=== PATIENT | male | born 1990 | race Caucasian/White ===

== ENCOUNTER 2017-03-11 11:22 | Emergency (ER) | payer OTHER ==
[2017-03-11 12:34] VITALS: BP 153/90
[2017-03-11] MEDS ORDERED: Albuterol/Ipratropium NEB.SOL* Albuterol 2.5 MG/Ipratropium 0.5 MG 3 ML INH ONE (12:59)
[2017-03-11] MEDS ORDERED: Albuterol/Ipratropium NEB.SOL* Albuterol 2.5 MG/Ipratropium 0.5 MG 3 ML ONE (13:36)
--- NOTE | 2017-03-11 14:00 | RAD ---
HISTORY: Fever, cough, wheeze COMPARISONS: August 22, 2014 VIEWS: 2: Frontal dual-energy and lateral views of the chest. FINDINGS: CARDIOMEDIASTINAL SILHOUETTE: The cardiomediastinal silhouette is normal. ERNESTO: The ernesto are normal. PLEURA: The costophrenic angles are sharp. No pleural abnormalities are noted. LUNG PARENCHYMA: The lungs are clear. ABDOMEN: The upper abdomen is clear. There is no subphrenic gas. BONES AND SOFT TISSUES: No bone or soft tissue abnormalities are noted. OTHER: None. IMPRESSION: NO ACTIVE CARDIOPULMONARY DISEASE.
--- NOTE | 2017-04-08 13:55 | UC ---
Everett Fang Salem, scribed for Staci Carlos MD on 03/11/17 at 1300 . Respiratory Complaint HPI - HPI Summary HPI Summary: Patient is a 26 y/o male who presents to the with a cough and congestion since 4 days, but worse today. He reports CP when coughing, a mild subjective fever, and pain with swallowing. Pt denies a headache. He states that he does not have an inhaler, but used to when he was younger. He states that he did not receive a flu shot this year. Pt works outside in [employer] Patients medication reviewed this visit. - History of Current Complaint Chief Complaint: UCRespiratory Stated Complaint: SORE THROAT,COUGH Time Seen by Provider: 03/11/17 12:45 Hx Obtained From: Patient Onset/Duration: Gradual Onset, Lasting Days, Still Present Timing: Constant Severity Initially: Moderate Severity Currently: Moderate Character: Cough: Productive Aggravating Factors: Nothing Alleviating Factors: Nothing Associated Signs And Symptoms: Positive: Fever - Subjective. - Allergies/Home Medications Allergies/Adverse Reactions: Allergies Allergy/AdvReac Type Severity Reaction Status Date / Time No Known Allergies Allergy Verified 12/17/15 16:00 Home Medications: Home Medications Benzotropene? 03/11/17 [History] Divalproex Sodium [Depakote] 1,000 mg PO DAILY 03/11/17 [History Confirmed 03/11] Haloperidol TAB* [Haldol TAB*] 10 mg PO DAILY 03/11/17 [History Confirmed ] PMH/Surg Hx/FS Hx/Imm Hx Previously Healthy: Yes Endocrine History Of: Denies: Diabetes, Thyroid Disease Cardiovascular History Of: Denies: Cardiac Disorders, Hypertension, Congestive Heart Failure Respiratory History Of: Denies: COPD, Asthma GI/ History Of: Denies: Ulcer, Renal Disease Psychological History Of: Reports: Schizophrenia - Surgical History Surgical History: None - Family History Known Family History: Positive: Other - schizophrenia - Social History Alcohol Use: None Alcohol Amount: hx etoh abuse Substance Use Type: Marijuana Substance Use Comment - Amount & Last Used: 2 nights ago Smoking Status (MU): Current Every Day Smoker Type: Cigarettes Amount Used/How Often: PPD Length of Time of Smoking/Using Tobacco: 5YRS Have You Smoked in the Last Year: Yes When Did the Patient Quit Smoking/Using Tobacco: 02/28/14 Household Exposure Type: Cigarettes - Immunization History Most Recent Influenza Vaccination: never Most Recent Tetanus Shot: within 10 years Most Recent Pneumonia Vaccination: never Review of Systems Constitutional: Fever - Mild, subjective. Respiratory: Cough, Other - See HPI. All Other Systems Reviewed And Are Negative: Yes Physical Exam Triage Information Reviewed: Yes Appearance: Obese Vital Signs: Initial Vital Signs Temp 99.0 F 03/11/17 12:23 Pulse 94 03/11/17 12:23 Resp 18 03/11/17 12:23 BP 153/90 03/11/17 12:23 Pulse Ox 96 03/11/17 12:23 Blood pressure noted and patient informed to follow up with PCP. Vital Signs Reviewed: Yes Eye Exam: Normal ENT Exam: Normal Respiratory Exam: Normal Respiratory: Positive: Chest non-tender, Lungs clear, Normal breath sounds, No respiratory distress, No accessory muscle use Cardiovascular Exam: Normal Cardiovascular: Positive: RRR, No Murmur, Pulses Normal, Brisk Capillary Refill Abdomen Description: Positive: Nontender, No Organomegaly, Soft Bowel Sounds: Positive: Present Musculoskeletal: Positive: Strength Intact Neurological Exam: Normal - nonfocal, grossly intact Psychological Exam: Normal - conversing easily and appropriately Skin Exam: Normal - no visible or reported rash UC Diagnostic Evaluation - Laboratory O2 Sat by Pulse Oximetry: 96 Diagnostic Studies Comment: Group A Strep Rapid: negative. - Radiology Radiology Interpretation Completed By: Radiologist - CXR IMPRESSION: NO ACTIVE CARDIOPULMONARY DISEASE. Re-Evaluation - Re-Evaluation First Eval Re-Evaluation Time: 14:08 Comment: Informed pt of plan. Respiratory Course/Dx - Course Course Of Treatment: No new problems in CCC. Reviewed ancillaries with pt. Questions answered as posed to the best of my ability. - Differential Dx/Diagnosis Provider Diagnoses: Acute bronchitis. Discharge - Discharge Plan Condition: Stable Disposition: HOME Prescriptions: Albuterol HFA INHALER* [Ventolin HFA Inhaler*] 1 - 2 puff INH Q4H PRN #1 mdi PRN Reason: Wheezing Amoxicillin (*) [Amoxicillin 875 MG (*)] 875 mg PO BID #20 tab Patient Education Materials: Acute Bronchitis (ED), Wheezing (ED) Referrals: [facility] [Outside] Additional Instructions: Please follow up with your primary care provider per routine Recommend recheck (lungs) in 1-2 weeks. Seek medical attention for worsening problems in the meantime. Recommend rest as much as possible, drink plenty of water. Avoid smoking. The documentation as recorded by the Everett rajan Salem accurately reflects the service I personally performed and the decisions made by me, Staci Carlos MD.
== END 2017-03-11 14:24 | disposition home or self-care (01) ==
LOC: UCEAST 11:22
DX: J20.9 Acute bronchitis, unspecified (principal); E66.9 Obesity, unspecified; F20.9 Schizophrenia, unspecified; F12.90 Cannabis use, unspecified, uncomplicated; F17.210 Nicotine dependence, cigarettes, uncomplicated
CPT/HCPCS: 71020; 87651; 99212; A9270-GY; G0463

== ENCOUNTER → 2017-07-26 21:40 | Emergency (ER) | payer MEDICAID ==
[2017-07-26 22:45] LABS: Hematocrit 39 % (42-52); Hemoglobin 13.5 g/dl (14.0-18.0); Mean Corpuscular HGB Conc 35 g/dl (31-36); Mean Corpuscular Hemoglobin 31 pg (27-31); Mean Corpuscular Volume 88 fL (80-94); Mean Platelet Volume 9 um3 (7.4-10.4); Red Blood Count 4.39 10^6/ul (4.0-5.4); Red Cell Distribution Width 13 % (10.5-15); White Blood Count 9.3 10^3/ul (3.5-10.8)
[2017-07-26 22:45] LABS: Urine Bacteria Absent (Absent); Urine Bilirubin Negative (Negative); Urine Glucose Negative (Negative); Urine Nitrite Negative (Negative)
[2017-07-26 23:00] LABS: ALT 16 U/L (7-52); AST 19 U/L (13-39); Albumin 4.2 g/dL (3.2-5.2); Alkaline Phosphatase 40 U/L (34-104); Anion Gap 5 mmol/L (2-11); BUN/Creatinine Ratio 11.1 (8-20); Blood Urea Nitrogen 10 mg/dL (6-24); CO2 Carbon Dioxide 27 mmol/L (22-32); Calcium 9.1 mg/dL (8.6-10.3); Chloride 104 mmol/L (101-111); EGFR African American 131.2 (>60); Globulin 2.7 g/dL (2-4); Glucose 88 mg/dL (70-100); Potassium 3.9 mmol/L (3.5-5.0); Sodium 136 mmol/L (133-145); Total Protein 6.9 g/dL (6.4-8.9)
[2017-07-26 23:11] LABS: Benzodiazepine Urine Screen None Detected (None Detect)
[2017-07-26 23:50] LABS: Acetaminophen < 15 mcg/mL; Alcohol < 10 mg/dL (<10); Salicylate < 2.50 mg/dL (<30)
[2017-07-27 00:01] LABS: TSH (Thyroid Stimulating Horm) 3.57 mcIU/mL (0.34-5.60)
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
[2017-07-27 00:20] VITALS: BP 115/36
--- NOTE | 2017-07-27 03:48 | ED ---
Daksha Fang Rebecca, scribed for Oni Friend on 07/27/17 at 0242 . Progress - Progress Note Progress Note: Pt was signed out from Dr. Sethi, pending disposition, awaiting MHE. - Consult/PCP Time Called: 12:00 Course/Dx - Course Course Of Treatment: Pt was signed out from Dr. Sethi, pending disposition, awaiting MHE. Upon completion of MHE and evaluation with Dr. Mckeon it has been determined that the pt is cleared to be D/C to home with Dx of anxiety. Pt's condition is stable and he understands and agrees with disposition plan to be D/ C. - Diagnoses Provider Diagnoses: Anxiety The documentation as recorded by the Daksha rajan Rebecca accurately reflects the service I personally performed and the decisions made by , Oni Friend.
== END ==
LOC: ED 21:40
DX: F23 Brief psychotic disorder (principal); F41.9 Anxiety disorder, unspecified; F17.210 Nicotine dependence, cigarettes, uncomplicated; F12.10 Cannabis abuse, uncomplicated
CPT/HCPCS: 36415; 80053; 80307; 80320; 80329; 81003; 81015; 84443; 85025; 99283; G0480

== ENCOUNTER 2017-10-18 12:35 | Emergency (ER) | payer OTHER ==
[2017-10-18 13:18] LABS: Benzodiazepine Urine Screen None Detected (None Detect)
[2017-10-18 13:19] LABS: Urine Bacteria Absent (Absent); Urine Bilirubin Negative (Negative); Urine Glucose Negative (Negative); Urine Nitrite Negative (Negative)
[2017-10-18 13:42] LABS: Hematocrit 41 % (42-52); Hemoglobin 14.2 g/dl (14.0-18.0); Mean Corpuscular HGB Conc 34 g/dl (31-36); Mean Corpuscular Hemoglobin 30 pg (27-31); Mean Corpuscular Volume 88 fL (80-94); Mean Platelet Volume 8 um3 (7.4-10.4); Red Blood Count 4.71 10^6/ul (4.0-5.4); Red Cell Distribution Width 13 % (10.5-15); White Blood Count 12.8 10^3/ul (3.5-10.8)
[2017-10-18 13:55] LABS: ALT 43 U/L (7-52); Albumin 4.5 g/dL (3.2-5.2); Alkaline Phosphatase 56 U/L (34-104); BUN/Creatinine Ratio 12.1 (8-20); Blood Urea Nitrogen 12 mg/dL (6-24); CO2 Carbon Dioxide 26 mmol/L (22-32); Calcium 9.7 mg/dL (8.6-10.3); Chloride 104 mmol/L (101-111); EGFR African American 117.5 (>60); EGFR Non-African American 91.4 (>60); Globulin 2.9 g/dL (2-4); Glucose 94 mg/dL (70-100); Sodium 136 mmol/L (133-145); Total Protein 7.4 g/dL (6.4-8.9)
[2017-10-18 14:08] LABS: Acetaminophen < 15 mcg/mL; Alcohol < 10 mg/dL (<10); Lithium 0.55 mmol/L (0.6-1.2); Salicylate < 2.50 mg/dL (<30)
[2017-10-18 14:23] LABS: TSH (Thyroid Stimulating Horm) 4.24 mcIU/mL (0.34-5.60)
[2017-10-18 14:32] LABS: Anion Gap 6 mmol/L (2-11); Potassium 4.3 mmol/L (3.5-5.0)
[2017-10-18 14:33] LABS: AST 32 U/L (13-39)
[2017-10-18] MEDS ORDERED: OLANzapine TAB* 5 MG ONE (16:45)
[2017-10-18 16:50] VITALS: BP 125/96
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
[2017-10-18] MEDS ORDERED: OLANzapine TAB* 10 MG PO SCH (21:00)
== END 2017-10-18 16:50 | disposition home or self-care (01) ==
LOC: ED 12:35
DX: R44.3 Hallucinations, unspecified (principal); F17.210 Nicotine dependence, cigarettes, uncomplicated; Z00.8 Encounter for other general examination
CPT/HCPCS: 36415; 80053; 80178; 80307; 80320; 80329; 81003; 81015; 84443; 85025; 99282; A9270-GY; G0480

== ENCOUNTER 2017-11-28 20:13 | Emergency (ER) | payer MEDICAID, OTHER ==
[2017-11-28 21:29] LABS: ABS Basophils 0 10^3/ul (0-0.2); ABS Eosinophils 0.4 10^3/ul (0-0.6); ABS Monocytes 0.6 10^3/ul (0-0.8); ABS Nucleated RBC 0 10^3/ul; Eosinophil % 3.8 % (0-6); Hematocrit 42 % (42-52); Hemoglobin 14.3 g/dl (14.0-18.0); Mean Corpuscular HGB Conc 35 g/dl (31-36); Mean Corpuscular Hemoglobin 30 pg (27-31); Mean Corpuscular Volume 88 fL (80-94); Mean Platelet Volume 9 um3 (7.4-10.4); Nucleated Red Blood Cells % 0.1; Platelet Count 213 10^3/ul (150-450); Red Blood Count 4.72 10^6/ul (4.0-5.4); Red Cell Distribution Width 13 % (10.5-15); White Blood Count 9.9 10^3/ul (3.5-10.8)
[2017-11-28 21:31] LABS: Urine Appearance Clear; Urine Blood 2+ (Negative); Urine Color Straw; Urine Ketones Negative (Negative); Urine Protein Negative (Negative); Urine Specific Gravity 1.005 (1.010-1.030); Urine Urobilinogen Negative (Negative)
[2017-11-28 21:50] LABS: EGFR Non-African American 78.4 (>60)
[2017-11-28] MEDS ORDERED: Ibuprofen TAB* 600 MG PO ONE (22:15)
[2017-11-29 00:30] VITALS: BP 143/82
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
== END 2017-11-29 00:30 | disposition home or self-care (01) ==
LOC: ED 20:13
DX: F29 Unspecified psychosis not due to a substance or known physiological condition (principal); R44.3 Hallucinations, unspecified; F17.210 Nicotine dependence, cigarettes, uncomplicated
CPT/HCPCS: 36415; 80053; 80178; 80307; 80320; 80329; 81003; 81015; 84443; 85025; 99284; A9270-GY; G0480

== ENCOUNTER 2017-12-04 11:49 | Emergency (ER) | payer MEDICAID, OTHER | END 2017-12-04 13:40 | disposition left against medical advice (07) | LOC: UCEAST 11:49 | DX: J06.9 Acute upper respiratory infection, unspecified (principal); Z53.21 Procedure and treatment not carried out due to patient leaving prior to being seen by health care provider ==

== ENCOUNTER 2018-01-05 05:22 | Emergency (ER) | payer OTHER ==
[2018-01-05 06:07] LABS: ABS Basophils 0.1 10^3/ul (0-0.2); ABS Eosinophils 0.4 10^3/ul (0-0.6); ABS Lymphocytes 3.1 10^3/ul (1.0-4.8); ABS Monocytes 0.7 10^3/ul (0-0.8); ABS Neutrophils 5.4 10^3/ul (1.5-7.7); ABS Nucleated RBC 0 10^3/ul; Eosinophil % 4.2 % (0-6); Hematocrit 39 % (42-52); Hemoglobin 13.4 g/dl (14.0-18.0); Lymphocyte % 32.2 % (25-47); Mean Corpuscular HGB Conc 34 g/dl (31-36); Mean Corpuscular Hemoglobin 30 pg (27-31); Mean Corpuscular Volume 87 fL (80-94); Mean Platelet Volume 9 um3 (7.4-10.4); Nucleated Red Blood Cells % 0; Platelet Count 205 10^3/ul (150-450); Red Blood Count 4.49 10^6/ul (4.0-5.4); Red Cell Distribution Width 13 % (10.5-15); White Blood Count 9.8 10^3/ul (3.5-10.8)
[2018-01-05 06:14] LABS: Urine Appearance Clear; Urine Blood 2+ (Negative); Urine Color Yellow; Urine Ketones Negative (Negative); Urine Protein Negative (Negative); Urine Specific Gravity 1.008 (1.010-1.030); Urine Urobilinogen Negative (Negative)
[2018-01-05 06:21] LABS: EGFR Non-African American 76.9 (>60)
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
[2018-01-05 17:24] VITALS: BP 124/77
--- NOTE | 2018-01-05 18:05 | ED ---
Andry Fang Angela, scribed for Austin Mixon MD on 01/05/18 at 0730 . Progress - Progress Note Progress Note: This pt was signed out by Dr. Elizabeth, pending disposition, awaiting MHE. On re-evaluation, pt is resting comfortably with no distress. He reports he is feeling better. Pt is awaiting MHE. Pt was evaluated by the mental health film vault supervisor and Dr. Kern. Dr. Kern recommends to discharge the pt home with outpatient follow up from Dr. Jose at [facility]. Pt will be discharged to home, in stable condition, with a diagnosis of bipolar disorder. Condition: Stable Disposition: Home Re-Evaluation - Re-Evaluation First Eval Re-Evaluation Time: 07:23 Change: Improved Comment: Pt is resting comfortably with no distress. He reports he is feeling better. Pt is awaiting MHE. Course/Dx - Diagnoses Provider Diagnoses: Bipolar disorder The documentation as recorded by the Andry rajan Angela accurately reflects the service I personally performed and the decisions made by , Austin Mixon MD.
== END 2018-01-05 17:18 ==
LOC: ED 05:22
DX: F31.9 Bipolar disorder, unspecified (principal); F17.210 Nicotine dependence, cigarettes, uncomplicated
CPT/HCPCS: 36415; 80053; 80178; 80307; 80320; 80329; 81003; 81015; 84443; 85025; 99284; G0480

== ENCOUNTER 2018-01-18 16:12 | Emergency (ER) | payer MEDICAID, OTHER ==
[2018-01-18 16:20] VITALS: BP 134/89
[2018-01-18] MEDS ORDERED: OLANzapine TAB* 10 MG PO ONE ×2 (16:35→16:36)
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
== END 2018-01-18 16:45 | disposition home or self-care (01) ==
LOC: ED 16:12
DX: F29 Unspecified psychosis not due to a substance or known physiological condition (principal); F17.210 Nicotine dependence, cigarettes, uncomplicated
CPT/HCPCS: 99282; A9270-GY

== ENCOUNTER 2018-08-14 22:39 | Observation (INO) | payer MEDICAID ==
[2018-08-14] MEDS ORDERED: NS 0.9% 1000 ML* 1,000 ML IV ONE (23:54)
[2018-08-14] MEDS ORDERED: Morphine INJ* 4 MG/ML 1 ML SYRINGE (NEW SYRINGE VERSION) IV ONE (23:54)
[2018-08-14] MEDS ORDERED: Metoclopramide IV* 5 MG/ML 2 ML VIAL IV SLOW PU ONE (23:55)
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
[2018-08-15] MEDS ORDERED: Ketorolac INJ* 30 MG/ML 1 ML VIAL IV PUSH ONE (00:04)
[2018-08-15] MEDS ORDERED: Pantoprazole IV* 40 MG IV ONE (00:05)
[2018-08-15 00:24] LABS: ABS Basophils 0.1 10^3/ul (0-0.2); ABS Eosinophils 0.3 10^3/ul (0-0.6); ABS Lymphocytes 1.9 10^3/ul (1.0-4.8); ABS Monocytes 0.9 10^3/ul (0-0.8); ABS Neutrophils 16.2 10^3/ul (1.5-7.7); ABS Nucleated RBC 0 10^3/ul; Eosinophil % 1.3 % (0-6); Hematocrit 44 % (42-52); Hemoglobin 15.3 g/dl (14.0-18.0); Lymphocyte % 9.9 % (25-47); Mean Corpuscular HGB Conc 35 g/dl (31-36); Mean Corpuscular Hemoglobin 30 pg (27-31); Mean Corpuscular Volume 86 fL (80-94); Mean Platelet Volume 8.6 um3 (7.4-10.4); Nucleated Red Blood Cells % 0.1; Platelet Count 284 10^3/ul (150-450); Red Blood Count 5.13 10^6/ul (4.00-5.40); Red Cell Distribution Width 13 % (10.5-15); White Blood Count 19.3 10^3/ul (3.5-10.8)
[2018-08-15 00:30] LABS: EGFR Non-African American 62.9 (>60)
[2018-08-15 00:43] LABS: Urine Appearance Cloudy; Urine Blood 3+ (Negative); Urine Color Yellow; Urine Ketones Negative (Negative); Urine Protein 1+(30 mg/dL) (Negative); Urine Red Blood Cell 3+(>10/hpf) (Absent); Urine Specific Gravity 1.017 (1.010-1.030); Urine Urobilinogen Negative (Negative); Urine White Blood Cell Trace(0-5/hpf) (Absent)
--- NOTE | 2018-08-15 00:48 | RAD ---
EXAM: US Abdomen Limited, Right Upper Quadrant EXAM DATE/TIME: 08/15/2018 12:12 AM CLINICAL HISTORY: 28 years old, male; Pain; Abdominal pain; Generalized; Additional info: Abd pain TECHNIQUE: Real-time ultrasound of the abdomen with image documentation. Examination was focused on the right upper quadrant. COMPARISON: No relevant prior studies available. FINDINGS: Liver: The liver is enlarged measuring 22 cm craniocaudad and diffusely echogenic consistent with fatty infiltration. Gallbladder: Normal. No gallstones. There is no gallbladder wall thickening. Common bile duct: The common bile duct measures 0.5 cm. Pancreas: The pancreatic body and tail were obscured by bowel gas. Right kidney: The right kidney measures 12.8 x 5.9 x 4.4 cm. IMPRESSION: 1. No acute findings. No shadowing gallstones. 2. Hepatic steatosis. 3. Pancreas incompletely visualized due to bowel gas. To contact [facility] with a general question: [facility] - [phone] For direct physician to physician contact: Physician Hotline - [phone] [facility] ([facility] Facility ID #[id number])
[2018-08-15] MEDS ORDERED: Iohexol 300* (CONTRAST) 10 ML SDV IV ONE (02:14)
--- NOTE | 2018-08-15 03:42 | RAD ---
EXAM: CT Abdomen and Pelvis With Intravenous Contrast EXAM DATE/TIME: 08/15/2018 2:15 AM CLINICAL HISTORY: 28 years old, male; Pain; Abdominal pain; Generalized; Additional info: Abd pain TECHNIQUE: Axial computed tomography images of the abdomen and pelvis with intravenous contrast. All CT scans at this facility use at least one of these dose optimization techniques: automated exposure control; mA and/or kV adjustment per patient size (includes targeted exams where dose is matched to clinical indication); or iterative reconstruction. Coronal and sagittal reformatted images were created and reviewed. CONTRAST: 145 ml of OMNI 300 administered intravenously. COMPARISON: GB US GALL BLADDER 08/15/2018 12:03 AM FINDINGS: Lower thorax: Minimal bibasilar fibro-atelectatic change. ABDOMEN: Liver: There is fatty infiltration of the liver. Liver attenuation is 88 Hounsfield units and the spleen is 142. Gallbladder and bile ducts: The gallbladder is contracted with no stones. Pancreas: Normal. No ductal dilation. Spleen: Normal. No splenomegaly. Adrenals: Normal. No mass. Kidneys and ureters: Normal. No hydronephrosis. Stomach and bowel: Mild fluid distention of proximal small bowel with air-fluid levels and collapsed distal small bowel consistent with a small bowel obstruction. There is a tapering transition in the lower abdomen and pelvis centered at the left of midline. Appendix: A normal appendix is seen. PELVIS: Bladder: Unremarkable as visualized. Reproductive: Unremarkable as visualized. ABDOMEN and PELVIS: Intraperitoneal space: Mild free fluid in the pelvis with a Hounsfield measurement of 23. Bones/joints: No acute fracture. No dislocation. Soft tissues: Unremarkable. Vasculature: Normal. No abdominal aortic aneurysm. Lymph nodes: Normal. No enlarged lymph nodes. IMPRESSION: 1. Fatty infiltration of the liver. 2. Evidence of small bowel obstruction with a tapering transition in the lower abdomen or pelvis to the left of midline. Although this may be mechanical, enteritis with adynamic segment is not excluded. 3. Mild free fluid in the pelvis which is nonspecific but is likely reactive. To contact [facility] with a general question: [facility] - [phone] For direct physician to physician contact: Physician Hotline - [phone] [facility] ([facility] Facility ID #[id number])
--- NOTE | 2018-08-15 04:58 | ED ---
Progress - Progress Note Progress Note: At 4:30 patient wanted to leave [facility] because he has work. He is still being admitted to Dr. Beth. Course/Dx - Course Course Of Treatment: Pt is a 28 y/o male who presents to the ED c/o abdominal pain since yesterday. He states the pain is worse after eating. Pt also c/o N/ V. He denies any hx of abdominal surgeries. A physical exam revealed RUQ and epigastric tenderness. A CT A/P revealed Fatty infiltration of the liver. Evidence of small bowel obstruction with a tapering transition in the lower abdomen or pelvis to the left of midline. Although this may be mechanical, enteritis with adynamic segment is not excluded. Mild free fluid in the pelvis which is nonspecific but is likely reactive. A gallbladder US revealed No acute findings. No shadowing gallstones. Hepatic steatosis. Pancreas incompletely visualized due to bowel gas. Final dx is small bowel obstruction. Pt is admitted to Dr. Beth. - Diagnoses Provider Diagnoses: Obstructive ileus of small intestine due to impaction, Abdominal pain - Provider Notifications Discussed Care Of Patient With: Sophy Beth Time Discussed With Above Provider: 04:50 Instructed by Provider To: Admit As Inpatient - Spoke to Dr. Beth about the care of the patient. Discharge - Sign-Out/Discharge Documenting (check all that apply): Patient Departure - Admit - Discharge Plan Condition: Stable Disposition: ADMITTED TO [facility] Referrals: Carlos CALLEJAS,Patrick Mean [Primary Care Provider] - - Attestation Statements Document Initiated by Scribe: Yes Documenting Scribe: Wendy Davis Provider For Whom Scribe is Documenting (Include Credential): Odette Brennan Attestation: Wendy Fang, deonte for Amy Elizabeth on 08/15/18 at 0456.
[2018-08-15] MEDS ORDERED: Ondansetron INJ* 2 MG/ML VIAL IV PRN (05:00)
[2018-08-15] MEDS ORDERED: Metoclopramide IV* 5 MG/ML 2 ML VIAL IV PRN (05:07)
[2018-08-15] MEDS ORDERED: ZOSYN 3.375 GM x ONE DOSE over 30 miuntes IVPB STA ×2 (05:53)
[2018-08-15] MEDS ORDERED: Pantoprazole IV* 40 MG IV SCH (06:00)
[2018-08-15] MEDS ORDERED: Ketorolac INJ* 30 MG/ML 1 ML VIAL IV PUSH PRN (06:16)
[2018-08-15 06:18] LABS: ABS Basophils 0 10^3/ul (0-0.2); ABS Eosinophils 0.3 10^3/ul (0-0.6); ABS Lymphocytes 2.3 10^3/ul (1.0-4.8); ABS Monocytes 0.6 10^3/ul (0-0.8); ABS Neutrophils 11.4 10^3/ul (1.5-7.7); ABS Nucleated RBC 0 10^3/ul; Eosinophil % 1.8 % (0-6); Hematocrit 42 % (42-52); Hemoglobin 14.5 g/dl (14.0-18.0); Mean Corpuscular HGB Conc 34 g/dl (31-36); Mean Corpuscular Hemoglobin 30 pg (27-31); Mean Corpuscular Volume 87 fL (80-94); Mean Platelet Volume 8.1 um3 (7.4-10.4); Nucleated Red Blood Cells % 0.1; Platelet Count 256 10^3/ul (150-450); Red Cell Distribution Width 14 % (10.5-15); White Blood Count 14.6 10^3/ul (3.5-10.8)
[2018-08-15 06:36] LABS: EGFR Non-African American 74.8 (>60)
[2018-08-15 06:53] LABS: Lithium 0.35 mmol/L (0.6-1.2)
[2018-08-15] MEDS: Enoxaparin(*) 40 MG/0.4 ML SYR SUBCUT SCH (07:49)
--- NOTE | 2018-08-15 09:01 | ADMNOTE ---
Subjective Date of Service: 08/15/18 Interval History: this is a admission h/p hpi this is a 28 yr old h male with hx of ivda but has been clean for 18 months presented to er with sudden onset of abd pain for two days threw up after he ate a toccaco. initial wbc of 19 ct of abd/pelvis showed possible complete sbo. 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 Past Medical History: Findings - phx schezoaffective disorder bipolar hx of polysustance dep cig smoker pxx Review of Systems - Measurements Intake and Output: Intake and Output Last 24 Hours 08/13/18 08/14/18 08/15/18 08/16/18 06:59 06:59 06:59 06:59 Intake Total 1000 Balance 1000 Weight 240 lb Intake: IV Fluids 1000 - Review of Systems General Comments: please refer to hpi for details 10/14 ros d/w pt Objective Active Medications: Enoxaparin Sodium (Lovenox(*)) 40 mg SUBCUT Q24H JONATHAN Last Admin: 08/15/18 07:49 Dose: 40 mg Piperacillin Sod/Tazobactam (Sod 3.375 gm/ Sodium Chloride) 100 mls @ 25 mls/ hr IVPB Q8H JONATHAN Ketorolac Tromethamine (Toradol Inj*) 30 mg IV PUSH Q6H PRN PRN Reason: PAIN Last Admin: 08/15/18 07:49 Dose: 30 mg Metoclopramide HCl (Reglan Iv*) 10 mg IV Q6H PRN PRN Reason: NAUSEA/VOMITING Ondansetron HCl (Zofran Inj*) 4 mg IV Q6H PRN PRN Reason: NAUSEA Pantoprazole Sodium (Protonix Iv*) 40 mg IV Q24H JONATHAN Vital Signs - 8 hr 08/15/18 08/15/18 08/15/18 00:52 01:00 01:27 Temperature Pulse Rate 97 85 Respiratory Rate Blood Pressure 161/96 118/87 (mmHg) O2 Sat by Pulse 96 96 Oximetry 08/15/18 08/15/18 08/15/18 01:56 02:21 02:26 Temperature Pulse Rate 88 89 Respiratory Rate Blood Pressure 114/62 129/80 (mmHg) O2 Sat by Pulse 96 95 Oximetry 08/15/18 08/15/18 08/15/18 02:56 03:00 03:26 Temperature Pulse Rate 91 91 89 Respiratory Rate Blood Pressure 111/71 111/79 (mmHg) O2 Sat by Pulse 95 95 94 Oximetry 08/15/18 08/15/18 08/15/18 03:56 04:00 04:26 Temperature Pulse Rate 91 87 89 Respiratory Rate Blood Pressure 121/77 112/66 (mmHg) O2 Sat by Pulse 95 95 96 Oximetry 08/15/18 08/15/18 08/15/18 04:57 05:31 06:11 Temperature 97.8 F Pulse Rate 86 87 85 Respiratory 16 Rate Blood Pressure 149/92 146/72 (mmHg) O2 Sat by Pulse 95 96 98 Oximetry 08/15/18 08/15/18 08/15/18 06:15 06:16 06:17 Temperature 98.2 F Pulse Rate 88 91 88 Respiratory 16 Rate Blood Pressure 126/85 126/85 (mmHg) O2 Sat by Pulse 95 96 95 Oximetry 08/15/18 08/15/18 06:26 06:49 Temperature 98.2 F Pulse Rate 87 88 Respiratory 16 Rate Blood Pressure 138/55 126/85 (mmHg) O2 Sat by Pulse 96 95 Oximetry Oxygen Devices in Use Now: None Eyes: No Scleral Icterus, PERRLA Ears/Nose/Mouth/Throat: NL Teeth, Lips, Gums, Clear Oropharnyx, Mucous Membranes Moist Neck: NL Appearance and Movements; NL JVP, Trachea Midline, No Thyroid Enlargement, Masses Respiratory: Symmetrical Chest Expansion and Respiratory Effort, Clear to Auscultation Cardiovascular: NL Sounds; No Murmurs; No JVD, RRR Abdominal: NL Sounds; No Tenderness; No Distention Extremities: No Edema Skin: No Rash or Ulcers Neurological: Alert and Oriented x 3, NL Sensation, NL Gait, NL Muscle Strength and Tone Result Diagrams: 08/15/18 06:03 08/15/18 06:03 Assess/Plan/Problems-Billing Assessment: 28 yr old wm with hx of polysustance hx has been clean for 18 m presented to er with constant abd pain for two days threw up after eating a toccaco ct scan of abd suggested possible sbo initial wbc is 19 - Patient Problems (1) SIRS (systemic inflammatory response syndrome) Current Visit: Yes Status: Acute Code(s): R65.10 - SIRS OF NON-INFECTIOUS ORIGIN W/O ACUTE ORGAN DYSFUNCTION SNOMED Code(s): 662786336 Comment: - prob due to sbo - strict npo - surg consult placed in and ngt placement as per gi - blood cx followed by zosyn - toradol prn for pain as per pt request (2) SBO (small bowel obstruction) Current Visit: Yes Status: Acute Code(s): K56.609 - UNSP INTESTNL OBST, UNSP TO PARTIAL VERSUS COMPLETE OBST SNOMED Code(s): 329468911 Comment: surgery eval called in (3) Schizo affective schizophrenia Current Visit: Yes Status: Acute Code(s): F25.0 - SCHIZOAFFECTIVE DISORDER, BIPOLAR TYPE SNOMED Code(s): 957994485 Comment: npo for now did inform surgery that his needs his psy if possible (4) Bipolar 1 disorder Current Visit: Yes Status: Acute Code(s): F31.9 - BIPOLAR DISORDER, UNSPECIFIED SNOMED Code(s): 423863817 Comment: on lithium level came back low (5) Cigarette smoker Current Visit: Yes Status: Acute Code(s): F17.210 - NICOTINE DEPENDENCE, CIGARETTES, UNCOMPLICATED SNOMED Code(s): 66777314 Comment: nicotine patch
[2018-08-15] MEDS ORDERED: OLANzapine TAB* 10 MG PO SCH (10:00)
[2018-08-15] MEDS ORDERED: Lurasidone(*) 80 MG TAB PO SCH (10:00)
[2018-08-15] MEDS ORDERED: Piperacillin/Tazobac ADVAN(*) 3.375 GM in NS 0.9% 100 ML* 100 ML IVPB SCH (10:30)
[2018-08-15] MEDS: D5W 1/2 NS KCl 20 Meq 1000 ML* 1,000 ML IV SCH ×2 (11:06→20:58)
--- NOTE | 2018-08-15 12:27 | CONS ---
CC: [facility]; Dr. Mcwilliams with the [facility] office here CONSULTATION REPORT: DATE OF CONSULT: 08/15/18 REFERRING PROVIDER: Dr. Sophy Beth, hospitalist. REASON FOR CONSULT: Small bowel obstruction with nausea and vomiting. HISTORY OF PRESENT ILLNESS: Jovi Joy is a 28-year-old gentleman with a history of schizoaffec tive disease and also remote history of intravenous drug and alcohol abuse, but who has been clean fo r 18 months, who day developed some abdominal distention with generalized abdominal pain associa timothy with some nausea and vomiting. He gives a history of reflux disease where he has some dry heaves and retching and pain up into the chest, but this was different. His last bowel movement was several days ago, he passed small amount of flatus. He has had no fevers , shakes, or chills. He had only 1 episode of vomiting with any substantial amount of fluid and has not had any overnight since he has been in the emergency room. When seen in the emergency room, he was noted to be afebrile with slight elevation in the heart rate to 105. He had some generalized abdominal distention and tenderness. His white count initially was noted to be 19,000 and subsequently has come down to 14,000 on recheck. He had a lactic acid of 2.1 and this has not been repeated. Otherwise, his electrolytes were unremarkable. He did have carbon d ioxide of 21, but normal BUN and creatinine after hydration. Lipase was normal. He underwent a CT scan of his abdomen and pelvis. I did review these images. These do show some mode rately distended proximal small bowel with some distally collapsed small bowel. It is difficult to d etermine if there is a transition zone. There is some air throughout the colon. The stomach was not particularly distended. Otherwise, gallbladder appeared to be normal. There was no evidence of absc ess or inflammatory process. There was some free fluid in the pelvis. He has been admitted to the hospitalist service with surgical consultation. PAST MEDICAL HISTORY: 1. Intravenous drug abuse. 2. Schizoaffective disorder. PAST SURGICAL HISTORY: Past abdominal surgical history is none. SOCIAL HISTORY: He is a smoker on a daily basis. He does not use alcohol or illicit drugs. 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 REVIEW OF SYSTEMS: Cerebrovascular: No dizziness or visual disturbance. Cardiovascular: No chest p ain or shortness of breath. Pulmonary: No wheezing or hemoptysis. GI: As per above. He recently was started on proton pump inhibitor for his reflux symptoms. : No urgency or hematuria. PHYSICAL EXAM: Temperature 98.2, pulse 88, blood pressure 126/85. In general, he is a well-develope d, well-nourished, slightly overweight male, who appeared to be in apparent distress. He is awake, a lert, conversant. Lungs are clear to auscultation with normal respiratory effort. Heart was regular rate and rhythm without murmurs, rubs, or gallop. His abdomen is soft, only slightly distended. The re are no prior surgical incisions. There are no umbilical or inguinal hernias. I appreciate no femo ral hernias. He has tenderness throughout. The bowel sounds are somewhat hyperactive and rushing, b ut are not high pitched or tinkling. He has no evidence of mass. There is no guarding or peritoneal irritation. IMPRESSION AND PLAN: Nausea with vomiting, abdominal distention. The CT scan showed findings worris ome for possible small bowel obstruction in the patient who has not had prior abdominal surgery. At this point, he is feeling much better, although did have leukocytosis, this seems to be improving wit h hydration and his lactic acid was mildly elevated. At this point, I do not believe that there is urgent indication for operative intervention and recomm end observation. It is certainly a little more concerning as there are no prior surgical procedures on his abdomen and we will keep this in mind in management over the next several days, but hopefully, this will resolve without operative management. I did discuss with him possibility that if he does not improve over the next 48 to 72 hours or there is worsening in his condition or x-rays that this may require laparoscopy and/or laparotomy. At this point, since he is not throwing up and the stomach is not distend on the CT scan, he is feeli ng better, I would hold off on the NG tube and place this if he does develop nausea and subsequent vo miting. Thank you for the consultation. [id number]/[facility] #: [id number]
[2018-08-15] MEDS ORDERED: Nicotine Inhaler* 10 MG AMP INH PRN (13:49)
[2018-08-15] MEDS: Mouth Piece, Nicotine* 1 EACH CARTRIDGE INH PRN (14:05)
[2018-08-15] MEDS ORDERED: CMC:Lithium Carbonate ER (NF) 300 MG TAB.ER PO SCH (18:00)
[2018-08-15] MEDS ORDERED: CloZAPine TAB* 100 MG TAB PO SCH (21:00)
[2018-08-15] MEDS: Perphenazine TAB* 2 MG PO SCH (21:10)
[2018-08-16] MEDS: Enoxaparin(*) 40 MG/0.4 ML SYR SUBCUT SCH (05:12)
[2018-08-16] MEDS: D5W 1/2 NS KCl 20 Meq 1000 ML* 1,000 ML IV SCH (06:09)
[2018-08-16] MEDS ORDERED: Pantoprazole IV* 40 MG IV SCH (08:00)
[2018-08-16] MEDS ORDERED: Nicotine PATCH 21 MG/24 HR* PATCH TRANSDERM SCH (08:00)
[2018-08-16] MEDS: Mouth Piece, Nicotine* 1 EACH CARTRIDGE INH PRN (09:35)
--- NOTE | 2018-08-16 09:35 | PN ---
Progress Note - Progress Note Date of Service: 08/16/18 SOAP: Subjective: Feels better--passing flatus No N/V and has appetite No abdominal pain Would like to eat Objective: Temp Pulse Resp BP Pulse Ox 97.4 F 73 16 136/68 95 08/16/18 03:24 08/16/18 03:24 08/16/18 03:24 08/16/18 03:24 08/16/18 03:24 Intake & Output 08/14/18 08/15/18 08/16/18 08/17/18 06:59 06:59 06:59 06:59 Intake Total 2025 0 Output Total 0 Balance 2025 0 Weight 239 lb 1.6 oz Intake: IV Fluids 2025 D5W 1/2 NS 20 meq KCL 1026 Oral 0 Output: Urine 0 Other: # Bowel Movements 0 # Voids 1 PEX: Comfortable Abd is soft and non-distended. Bowel sounds are present, normoactive. No tenderness AXR 08/16--air in colon, no significant small bowel distension Assessment: Abd pain-possible SBO--resolving, clinically improved Plan: Clear liquids and advance as tolerated If does OK could be d/c'd later today.
--- NOTE | 2018-08-16 09:37 | RAD ---
Indication: Follow-up small bowel obstruction. Flat and upright views of the abdomen demonstrates no free air. No dilated loops of bowel are noted. The colon is filled with stool. Previously identified dilated loops of small bowel are less prominent on the current study. Psoas margins are intact. No organomegaly is noted. IMPRESSION: Air is now noted in the sigmoid colon. Small bowel dilatation appears to be decreased relative to the CT dated August 15, 2018.
[2018-08-16] MEDS: Perphenazine TAB* 2 MG PO SCH (09:39)
[2018-08-16 13:11] VITALS: BP 132/70
[2018-08-16] MEDS ORDERED: OLANzapine TAB* 10 MG PO SCH (18:00)
--- NOTE | 2018-08-16 23:19 | DS ---
CC: Dr. Patrick Gonzalez DISCHARGE SUMMARY: DATE OF ADMISSION: DATE OF DISCHARGE: 08/16/18 HOSPITAL COURSE: This 28-year-old man presented with sudden-onset abdominal for 2 days, emesis. Here in the emergency room, he had a CT of the abdomen and pelvis. This showed mild fluid distention of proximal small bowel with air- fluid levels and collapsed distal small bowel consistent with a small bowel obstruction. There was a tapering transition in the lower abdomen and pelvis centered at the left midline. A normal appendix was seen. The impression at the end of the report states that although there was evidence of small bowel obstruction with the tapering transition in the lower abdomen or pelvis to the left of midline; this may be mechanical, but enteritis with adynamic segment was not excluded. The patient had surgical consultation. He was treated conservatively. He had repeat abdominal x-rays on the day of discharge. These showed air had moved to the sigmoid colon, small bowel distention had decreased compared to the CT scan. Dr. Espinoza and I both agreed that given that he has no history of prior abdominal surgery, the clinical course and x-ray findings are most compatible with gastroenteritis. The patient was given clear liquids which he tolerated quite well. His appetite was good. He had no abdominal tenderness or distention. Bowel sounds were normal. He was given all important medications by mouth with sips of water and will resume his regular medical regimen at home. FINAL DIAGNOSES: 1. Gastroenteritis. 2. Psychiatric disorder. 3. Tobacco use disorder. DISCHARGE MEDICATIONS: 1. Olanzapine 10 mg daily. 2. Omeprazole 40 mg daily. 3. Dix carbonate 1200 mg every evening in the extended release form. 4. Clozapine 400 mg daily. 5. Perphenazine 24 mg b.i.d. DISCHARGE DISPOSITION: home DISCHARGE CONDITION: good [id number]/[facility] #: [id number] MTDD
[2018-08-18 14:51] LABS: Creatinine, Urine 207.5 mg/dL; Fentanyl, Ur Not Detected ng/mL (Cutoff: 2); Hydrocodone, Ur Not Detected ng/mL (Cutoff: 25); Hydromorphone, Ur Not Detected ng/mL (Cutoff: 25); Morphine, Ur Not Detected ng/mL (Cutoff: 25); Norfentanyl, Ur Not Detected ng/mL (Cutoff: 2); Oxycodone, Ur Not Detected ng/mL (Cutoff: 25); Tramadol, Ur Not Detected ng/mL (Cutoff: 25)
== END 2018-08-16 14:14 | disposition home or self-care (01) ==
LOC: ED 22:39 → MEDTELE 08-15 04:58 → INTOOBSV 08-15 04:58 → MEDTELE 08-15 06:54
PROVIDERS: ADMIT Internal Medicine; ATTEND Internal Medicine
DX: K21.9 Gastro-esophageal reflux disease without esophagitis (principal); K56.609 Unspecified intestinal obstruction, unspecified as to partial versus complete obstruction; F99 Mental disorder, not otherwise specified; F17.210 Nicotine dependence, cigarettes, uncomplicated; R11.2 Nausea with vomiting, unspecified; R10.9 Unspecified abdominal pain
CPT/HCPCS: 36415; 74019; 74177; 76705; 80053; 80178; 80307; 80364; 81003; 81015; 82150; 83605; 83690; 83735; 85025; 86140; 87040; 87086; 96374; 96375; 96376; 99285; 99406; A9270-GY; G0378; G0480; J1650; J1885; J2405; J2543; J2765; Q9967

== ENCOUNTER 2018-08-18 22:04 | Emergency (ER) | payer MEDICAID ==
[2018-08-18] MEDS ORDERED: Ketorolac INJ* 30 MG/ML 1 ML VIAL IV PUSH ONE (22:56)
[2018-08-18] MEDS ORDERED: NS 0.9% 1000 ML* 1,000 ML IV ONE (22:56)
[2018-08-18] MEDS ORDERED: Metoclopramide IV* 5 MG/ML 2 ML VIAL IV SLOW PU ONE (22:57)
[2018-08-18 23:40] LABS: ABS Basophils 0 10^3/ul (0-0.2); ABS Eosinophils 0.2 10^3/ul (0-0.6); ABS Lymphocytes 1.6 10^3/ul (1.0-4.8); ABS Monocytes 0.8 10^3/ul (0-0.8); ABS Neutrophils 13.3 10^3/ul (1.5-7.7); ABS Nucleated RBC 0 10^3/ul; Eosinophil % 1.1 % (0-6); Hematocrit 46 % (42-52); Hemoglobin 15.6 g/dl (14.0-18.0); Lymphocyte % 10.1 % (25-47); Mean Corpuscular HGB Conc 34 g/dl (31-36); Mean Corpuscular Hemoglobin 30 pg (27-31); Mean Corpuscular Volume 87 fL (80-94); Mean Platelet Volume 8.2 um3 (7.4-10.4); Nucleated Red Blood Cells % 0; Platelet Count 267 10^3/ul (150-450); Red Blood Count 5.28 10^6/ul (4.00-5.40); Red Cell Distribution Width 14 % (10.5-15); White Blood Count 15.9 10^3/ul (3.5-10.8)
[2018-08-19 00:02] LABS: EGFR Non-African American 79.5 (>60)
[2018-08-19] MEDS ORDERED: Magnesium CITRATE* 300 ML BTL PO ONE (00:17)
[2018-08-19] MEDS ORDERED: Bisacodyl SUPP* 10 MG SUPP PR ONE (00:17)
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
[2018-08-19 00:34] VITALS: BP 106/70
--- NOTE | 2018-08-19 08:12 | RAD ---
HISTORY: ABd pain COMPARISONS: August 16, 2018 VIEWS: Frontal views of the abdomen. FINDINGS: BOWEL: There is persistent dilatation of small bowel loops within the central abdomen, stable from the previous examination. There is large amount stool throughout the colon. CALCULI: There are no abnormal calculi. BONES AND SOFT TISSUES: There are no osseous abnormalities. OTHER FINDINGS: The lung bases are clear. There is no subphrenic gas. IMPRESSION: 1. PERSISTENT SMALL BOWEL DILATATION, SUGGESTIVE OF PARTIAL OR INTERMITTENT OBSTRUCTION, STABLE FROM AUGUST 16, 2018. 2. LARGE AMOUNT OF STOOL THROUGHOUT THE COLON. FINDINGS WERE REVIEWED WITH DR. ALEJANDRO AT APPROXIMATELY 8:07 AM ON AUGUST 19, 2018 R3
--- NOTE | 2018-08-19 10:28 | ED ---
Progress - Progress Note Progress Note: Dr. Polanco radiologist called the emergency department after reviewing the abdominal x-rays from August 19, 2018. His impression is persistent small bowel dilatation suggestive of partial or intermittent it obstruction stable from August 16, 2018. I called the patient at [phone]. There was no answer. I left a message asking the patient to call us back in the emergency department. Overall my plan is that if the patient is completely improved he can follow up his primary care doctor. If he still having pain or any signs of obstruction he is to return to the emergency department. Course/Dx - Diagnoses Provider Diagnoses: Constipation, Abdominal pain Discharge - Sign-Out/Discharge Documenting (check all that apply): Patient Departure - Discharge Plan Condition: Stable Disposition: HOME Patient Education Materials: Constipation (ED), Abdominal Pain (ED) Referrals: [facility] [Provider Group] Additional Instructions: RETURN TO THE EMERGENCY DEPARTMENT FOR CHANGING OR WORSENING SYMPTOMS. FOLLOW UP WITH PCP IN 1-2 DAYS. - Billing Disposition and Condition Condition: STABLE Disposition: Home
== END 2018-08-19 01:34 | disposition home or self-care (01) ==
LOC: ED 22:04
DX: K59.00 Constipation, unspecified (principal); R10.9 Unspecified abdominal pain; R11.10 Vomiting, unspecified; F17.210 Nicotine dependence, cigarettes, uncomplicated
CPT/HCPCS: 36415; 74019; 80053; 82150; 83605; 83690; 83735; 85025; 85610; 85730; 86140; 96374; 96375; 99283; A9270-GY; J1885; J2765

== ENCOUNTER 2018-08-30 12:19 | Emergency (ER) | payer MEDICAID ==
[2018-08-30 13:18] LABS: ABS Basophils 0 10^3/ul (0-0.2); ABS Eosinophils 0.2 10^3/ul (0-0.6); ABS Lymphocytes 2.4 10^3/ul (1.0-4.8); ABS Monocytes 0.5 10^3/ul (0-0.8); ABS Neutrophils 6.3 10^3/ul (1.5-7.7); ABS Nucleated RBC 0 10^3/ul; Hematocrit 41 % (42-52); Lymphocyte % 25.7 % (25-47); Mean Corpuscular HGB Conc 34 g/dl (31-36); Mean Corpuscular Hemoglobin 29 pg (27-31); Mean Corpuscular Volume 87 fL (80-94); Mean Platelet Volume 8.2 um3 (7.4-10.4); Nucleated Red Blood Cells % 0.1; Platelet Count 250 10^3/ul (150-450); Red Blood Count 4.75 10^6/ul (4.00-5.40); Red Cell Distribution Width 14 % (10.5-15); White Blood Count 9.4 10^3/ul (3.5-10.8)
[2018-08-30 13:37] LABS: EGFR Non-African American 96.3 (>60)
[2018-08-30 14:00] LABS: Lithium < 0.10 mmol/L (0.6-1.2)
[2018-08-30] MEDS ORDERED: Paliperidone ER TAB* 1.5 MG TAB.ER PO ONE (14:19)
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
[2018-08-30 14:53] VITALS: BP 145/87
[2018-08-30] MEDS ORDERED: Paliperidone ER TAB* 9 MG TAB.ER PO ONE (15:00)
== END 2018-08-30 14:51 | disposition home or self-care (01) ==
LOC: ED 12:19
DX: R94.5 Abnormal results of liver function studies (principal); R44.0 Auditory hallucinations; R44.1 Visual hallucinations; F17.200 Nicotine dependence, unspecified, uncomplicated
CPT/HCPCS: 36415; 80053; 80074; 80178; 82977; 83690; 85025; 99282; A9270-GY

== ENCOUNTER 2018-09-03 11:19 | Observation (INO) | payer MEDICAID, OTHER ==
[2018-09-03 14:18] LABS: ABS Basophils 0 10^3/ul (0-0.2); ABS Eosinophils 0.3 10^3/ul (0-0.6); ABS Monocytes 0.5 10^3/ul (0-0.8); ABS Neutrophils 5.2 10^3/ul (1.5-7.7); ABS Nucleated RBC 0 10^3/ul; Eosinophil % 3.2 % (0-6); Hematocrit 41 % (42-52); Hemoglobin 13.8 g/dl (14.0-18.0); Lymphocyte % 32.6 % (25-47); Mean Corpuscular HGB Conc 34 g/dl (31-36); Mean Corpuscular Hemoglobin 30 pg (27-31); Mean Corpuscular Volume 86 fL (80-94); Mean Platelet Volume 8.2 um3 (7.4-10.4); Nucleated Red Blood Cells % 0.1; Platelet Count 265 10^3/ul (150-450); Red Blood Count 4.68 10^6/ul (4.00-5.40); Red Cell Distribution Width 13 % (10.5-15)
[2018-09-03] MEDS ORDERED: NS 0.9% 1000 ML* 2,000 ML IV ONE (14:28)
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
[2018-09-03] MEDS ORDERED: NS 0.9% 1000 ML* 1,000 ML IV ONE (16:53)
[2018-09-03 17:21] LABS: Lithium 0.52 mmol/L (0.6-1.2)
[2018-09-03] MEDS ORDERED: Acetaminophen TAB* 325 MG PO PRN (17:30)
[2018-09-03] MEDS ORDERED: Ondansetron INJ* 2 MG/ML VIAL IV PRN (17:30)
[2018-09-03] MEDS ORDERED: Mouth Piece, Nicotine* 1 EACH CARTRIDGE INH PRN (17:30)
[2018-09-03] MEDS ORDERED: Nicotine Inhaler* 10 MG AMP INH PRN (17:30)
[2018-09-03 18:03] LABS: Urine Appearance Clear; Urine Blood 2+ (Negative); Urine Color Yellow; Urine Ketones Negative (Negative); Urine Protein Negative (Negative); Urine Red Blood Cell 3+(>10/hpf) (Absent); Urine Specific Gravity 1.012 (1.010-1.030); Urine Urobilinogen Negative (Negative); Urine White Blood Cell Trace(0-5/hpf) (Absent)
--- NOTE | 2018-09-03 18:40 | RAD ---
EXAM: US Abdomen Limited, Right Upper Quadrant EXAM DATE/TIME: 09/03/2018 6:09 PM CLINICAL HISTORY: 28 years old, male; Abnormal findings; Abnormal lab test; Elevated liver enzymes; Additional info: Elevated lfts TECHNIQUE: Real-time ultrasound of the abdomen with image documentation. Examination was focused on the right upper quadrant. COMPARISON: GB US GALL BLADDER 08/15/2018 12:03 AM FINDINGS: Liver: The liver is echogenic from fatty infiltration and mildly enlarged measuring 22 cm. Gallbladder: The gallbladder is well filled without evidence of stones or wall thickening. Common bile duct: 2.3 mm in diameter No stones. No dilation. Pancreas: Visualized pancreas appears normal. Right kidney: Right kidney measures 12.5 cm in length. IMPRESSION: No gallstones or other acute process. Moderate fatty liver with mild hepatomegaly. To contact [facility] with a general question: Operations Center - [phone] For direct physician to physician contact: Physician Hotline - [phone] [facility] ([facility] Facility ID #[id number])
[2018-09-03] MEDS ORDERED: CMCS:Lithium Carbonate ER (NF) 300 MG TAB.ER PO SCH (19:00)
[2018-09-03] MEDS: Perphenazine TAB* 2 MG PO SCH (20:31)
[2018-09-03] MEDS ORDERED: Perphenazine TAB* 2 MG PO SCH (21:00)
--- NOTE | 2018-09-03 23:29 | HP ---
CC: Dr. Mcwilliams * ADMISSION HISTORY AND PHYSICAL: DATE OF ADMISSION: 09/03/18 PRIMARY CARE PROVIDER: Dr. Mcwilliams of [place]. MY ATTENDING WHILE IN THE HOSPITAL: Dr. Yamilka Triana.* (DICTATED BY ROBINSON ROBERTS) CHIEF COMPLAINT: Elevated liver enzymes, elevated creatine kinase. HISTORY OF PRESENT ILLNESS: Mr. Joy is a 28-year-old male with past medical history significant for schizoaffective disorder and recent admission for gastroenteritis, who has otherwise been in his normal state of health except for a slight nonproductive cough. The patient recently started exercising again after not exercising for approximately 8 months. The patient states that he works out vigorously for approximately 1 hour 3 to 5 times a week. The patient recently had his clozapine dose decreased likely due to abnormalities in his liver function testing at this institution. The patient came into the emergency department and was found to have elevated liver enzymes with approximately 3:1 AST and ALT ratio increase. The patient at that time had a hepatitis panel sent, which was nonreactive and a lithium level, which was less than 0.1. The patient denies recent alcohol abuse. The patient previous abused heroin, cocaine, and other drugs. The patient denies ever abusing alcohol. The patient denies recent heroin abuse. The patient denies recent Adderall use. The patient denies any abdominal pain, diarrhea. No one has ever told him he has jaundice. The patient does not have any muscle aches. The patient has no chest pain, shortness of breath. The patient smokes approximately pack a day and this has not changed recently. The patient has not had any other issues with his clozapine dosing. The patient has been having his normal amount of yellow urine without redness or oliguria. The patient has no back pain or other pain. The patient has been euthymic per his report. The patient is not taking any particular supplements for muscle growth while he has been working out. The patient previously at this institution has had elevated liver enzymes, but never to this degree. The patient has no other known past medical history. The patient has no known family history of autoimmune disease, liver disease. The patient has no recent travel outside the country. The patient has no recent0 tick bites. Due to concern for rhabdomyolysis of unknown cause and LFT elevation, we were asked to evaluate the patient for admission to the hospital. PAST MEDICAL HISTORY: Schizoaffective disorder, bipolar type; history of polysubstance abuse; recent gastroenteritis; hypothyroidism. PAST SURGICAL HISTORY: None. MEDICATIONS: As of most recent discharge, 1. Olanzapine 10 mg p.o. daily. 2. Omeprazole 40 mg p.o. daily. 3. [place] carbonate ER 1200 mg p.o. q.p.m. 4. Clozapine 400 mg p.o. daily. 5. Perphenazine 24 mg p.o. b.i.d. ALLERGIES: No known drug allergies. FAMILY HISTORY: The patient's parents are alive and well. The patient has 1 grandparent, who is alive and has no known medical conditions. The patient's other 3 grandparents are , but he does not know what they of, he just states due to old age. The patient has several siblings, who are alive and well. SOCIAL HISTORY: The patient smokes a pack a day and has smoked pack a day for 12 years. The patient denies alcohol abuse. The patient previously abused heroin and cocaine, but has been clean for 18 months per his report. The patient works occasionally in [email or web address] care. The patient is not and has no children. The patient's surrogate decision maker will be his sister, Carlee Joy. REVIEW OF SYSTEMS: A 14-point review of systems was conducted and is negative except as above in the HPI. PHYSICAL EXAMINATION GENERAL: The patient is a 28-year-old male with a flat affect, who appears stated age and sitting comfortably in bed, in no acute distress. HEENT: Head normocephalic, atraumatic. Sclerae anicteric. No conjunctival injection. Nasal mucosa moist. Oral mucosa moist. No pharyngeal erythema, discharge, or exudate. NECK: Supple, nontender. No lymphadenopathy. No carotid bruits auscultated. No JVD. RESPIRATORY: Clear to auscultation bilaterally. No wheezes, rales, or rhonchi. Good air exchange bilaterally. CARDIAC: Regular rate and rhythm. No clicks, murmurs, gallops, or rubs. Pulses are 2+ in the bilateral dorsalis pedis, posterior tibial, and radial areas. ABDOMEN: Soft, nontender, nondistended. Bowel sounds present and normoactive in all 4 quadrants. No hepatosplenomegaly. No abdominal bruits auscultated. No hepatojugular reflux. Negative Lowe's sign. Negative fluid wave. GENITOURINARY: No suprapubic or CVA tenderness. NEURO: Cranial nerves II through XII intact. No focal deficits. Alert and oriented x3. No muscle weakness. No myalgia. PSYCHIATRIC: Pleasant and cooperative. Flat affect. SKIN: Clear, dry, and intact. No rash. DIAGNOSTIC STUDIES/LAB DATA: White blood cell count 9.0, red blood cell count 4.6, hemoglobin 13.8, hematocrit 41, platelet count of 265. Sodium 138, potassium 4.2, chloride 108, carbon dioxide 25, anion gap 5, BUN 12, creatinine 0.96, glucose 87, lactic acid 0.7, calcium 9.5. Phosphorus pending. Bilirubin 0.3, AST 204, ALT 158, alkaline phosphatase 84. Creatine kinase 7802. Myoglobin pending. Troponin I of 0.00. Protein 7.5, albumin 4.5, globulin 3.0 , lipase 30. TSH 2.64. [place] 0.52. Studies: Electrocardiogram shows sinus bradycardia, early repolarization in V2 , V3 and V4, scooped T-waves in I, II, III, aVF, V5 and V6. No other ST segment abnormalities. No hypertrophy or enlargement. QTc of 413, rate of 56. ASSESSMENT AND PLAN/IMPRESSION: Mr. Joy is a 28-year-old male with past medical history significant for the above, who presents to the emergency department for evaluation of elevated liver enzymes as well as elevated creatine kinase. The patient will be aggressively fluid hydrated and have laboratory studies to help elucidate the cause of these laboratory abnormalities. 1. Rhabdomyolysis. The patient has a severely elevated CPK. The patient had CPK earlier today of 12,000 at [place], so this appears to be decreasing rapidly. It is possibly related to the patient's recurrent exercise regimen. The patient's potassium is normal, phosphorus is pending. The patient has no obvious reason to have low phosphorus. The patient has sinus bradycardia and early repolarization pattern indicating probable good physical fitness. The patient's CPK and myoglobin will be trended. The patient will be given aggressive fluid rehydration. The patient's phosphorus and potassium as well as kidney function will also be trended. The patient's clozapine level will be obtained and the patient will not be given his clozapine for the time being as rhabdomyolysis is the possible side effect of clozapine. The patient will also have tick-borne illness panel, as he does work in [employer] through most of the year, though the patient has no known rash. Ehrlichiosis could explain both his elevation in his liver enzymes and rhabdomyolysis. We will continue the patient 's other antipsychotic at this time. The patient's TSH is 4 and we will continue his levothyroxine dosing. The patient has no myalgia or proximal muscle weakness. We will not assess for autoimmune myopathy at this time. 2. Schizoaffective disorder, bipolar type. The patient seems euthymic at this time. We will continue the patient's perphenazine, olanzapine, and lithium. If the patient becomes manic or depressed off of his medications while in the hospital, we would recommend a psychiatric evaluation. It will be a difficult decision what to do about the patient's psychiatric medications if he improves off of his clozapine. Clozapine level is pending at this time. The patient has no signs of agranulocytosis and the patient has negative troponin making it less likely that his CK elevation is related to myocarditis from his clozapine. 3. Hypothyroidism. Continue levothyroxine. 4. DVT prophylaxis: The patient is low risk. The patient will be encouraged to ambulate frequently. 5. FEN: The patient will have a regular unrestricted diet and aggressive fluids as above. 6. Disposition: The patient is admitted to observation. 7. Code status: The patient would like to be a full code. The patient's surrogate decision maker will be his sister, Carlee Joy, as above. TIME SPENT: Approximately 60 minutes was spent on admission of this patient, 30 of which was spent [id number] with the patient obtaining history and physical and discussing treatment plan. The plan was discussed with my attending, Dr. Yamilka Triana, and she is in agreement. ROBINSON ROBERTS [id number]/[facility] #: [id number] SOHA
[2018-09-04] MEDS ORDERED: Levothyroxine TAB* 50 MCG TAB PO SCH (06:00)
[2018-09-04 07:14] LABS: EGFR Non-African American 105.3 (>60)
[2018-09-04 07:17] LABS: INR 0.97 (0.77-1.02)
[2018-09-04] MEDS ORDERED: Omeprazole CAP* 20 MG PO SCH (07:30)
[2018-09-04] MEDS: Perphenazine TAB* 2 MG PO SCH (08:20)
[2018-09-04] MEDS ORDERED: OLANzapine TAB* 10 MG PO SCH (09:00)
[2018-09-04 12:13] VITALS: BP 125/56
--- NOTE | 2018-09-05 06:23 | DS ---
CC: Moustapha Mcwilliams DO; Dr. Brett Sesay * DISCHARGE SUMMARY: DATE OF ADMISSION: 09/03/18 DATE OF DISCHARGE: 09/04/18 PRIMARY CARE PROVIDER: Moustapha Mcwilliams DO. MY ATTENDING WHILE IN THE HOSPITAL: Dr. Brett Sesay.* (DICTATED BY ROBINSON ROBERTS) PRIMARY DISCHARGE DIAGNOSES: 1. Rhabdomyolysis. 2. Elevated liver enzymes. SECONDARY DISCHARGE DIAGNOSES: 1. Schizoaffective disorder, bipolar type. 2. History of polysubstance abuse. 3. Recent admission for gastroenteritis. 4. Hypothyroidism. STUDIES DONE WHILE IN THE HOSPITAL: Electrocardiogram from 09/03/18 showed normal sinus rhythm, early repolarization, V1, V2, V3, V4. No significant EKG changes. Normal axis. No hypertrophied enlargement consistent with previous EKGs. Liver ultrasound from 09/03/18 read as no gallstones or other acute process, moderate fatty liver with mild hepatomegaly. MEDICATIONS AT DISCHARGE: 1. Olanzapine 10 mg p.o. daily. 2. Omeprazole 40 mg p.o. daily. 3. [place] carbonate 1200 mg p.o. q.p.m. 4. Levothyroxine 50 mcg p.o. daily. 5. Perphenazine 24 mg p.o. b.i.d. Medications discontinued at discharge: Clozapine. HOSPITAL COURSE: This is a brief summary of the patient's presentation. For more details, please see the history and physical from ROBINSON Roberts on 11/20. In brief, the patient is a 28-year-old male with past medical history significant for the above, who was recently admitted to this institution with a possible small bowel obstruction with diagnosis of gastroenteritis after very quick recovery and no predisposing factors for small bowel obstruction. The patient was also seen in the emergency department for psychotic symptoms and was found to have elevated liver enzymes with AST significantly more elevated than the ALT. The patient denies drinking. The patient when presented to the hospital on 09/03/18, had an elevated creatinine kinase and myoglobulin, which was found by his primary care provider in evaluation of his liver enzymes. The patient had recently been exercising more vigorously for approximately 1 hour 3 to 5 times a week. The patient had a low lithium level. The patient had a negative acute hepatitis panel recently. The patient had a liver ultrasound read as above. The patient was aggressively fluid resuscitated. The patient's creatinine kinase declined to 3430. The patient was off his clozapine. The patient had no dysphoric symptoms. The patient's AST and ALT declined to 120 and 116 respectively. The patient had no myalgias, no abdominal pain, no other symptoms. The patient was asymptomatic and had no vital signs abnormalities while in the hospital. The patient has a clozapine level pending. The patient had no signs of liver dysfunction. The patient was stable enough for discharge on 09/04/18. PHYSICAL EXAMINATION ON THE DATE OF DISCHARGE: General: The patient is a 28- year- old male, who appears stated age and sitting comfortably in bed, in no acute distress. HEENT: Head: Normocephalic, atraumatic. Sclerae anicteric. No conjunctival injection. Nasal mucosa moist. Oral mucosa moist. No pharyngeal erythema, discharge, or exudates. Neck: Supple, nontender. No lymphadenopathy. No carotid bruits auscultated. No JVD. Cardiac: Regular rate and rhythm. No clicks, murmurs, gallops, rubs. Pulses 2+ bilaterally in dorsalis pedis, posterior tibialis, and radial areas. Respiratory: Clear to auscultation bilaterally. No wheezes, rales, or rhonchi. Good air exchange bilaterally. Abdomen: Soft, nontender, nondistended. Bowels sounds present, normoactive in all 4 quadrants. No hepatospleno-megaly, no abdominal bruits auscultated. No hepatojugular reflux. Negative Lowe sign. Negative fluid waves, no guarding. Genitourinary: No suprapubic or CVA tenderness. Skin: Clean, dry and intact. No rash. Neuro: Cranial nerves II through XII intact. No focal deficits. Alert and oriented x3. Psychiatric: Pleasant and cooperative. DISCHARGE PLAN: The patient will be discharged to home. The patient's clozapine was his only medication that was known to cause rhabdomyolysis and elevated liver enzymes. This was discontinued. This change was discussed with patient's outpatient psychiatrist, Dr. Jose, who will follow up with the patient on Friday. The patient should follow up with his primary care provider in 1 week for repeat LFTs and creatinine kinase. If the patient's psychiatric symptoms are unable to be controlled with other medications and the patient's liver enzymes and creatinine kinase returned to normal it would not be ill- advised to have a retrial of clozapine. If patient has persistent elevated liver enzymes, further evaluation of hepatitis should be undertaken including autoimmune causes and metabolic causes, as well as possible discontinuation of other medications with substitution for alternative agents. The patient's elevated liver enzymes may be related to IRWIN as the patient is overweight. If the patient has persistently elevated liver enzymes with no other cause, the patient might benefit from vitamin E. The patient's symptoms including gastroenteritis, elevated liver enzymes, and rhabdomyolysis could be explained by viral infection. The patient had no other symptoms of viral infection and the timing of these makes this explanation less likely. The patient should engage in activities as tolerated and should have a regular unrestricted diet. TIME SPENT: Approximately 45 minutes was spent on the discharge of this patient , 30 of which was spent [id number] with the patient and obtaining history and physical and discussing treatment plan. ROBINSON ROBERTS [id number]/[facility] #: [id number] SOHA
== END 2018-09-04 15:20 | disposition home or self-care (01) ==
LOC: ED 11:19 → MED 17:30
PROVIDERS: ADMIT Internal Medicine; ATTEND Internal Medicine
DX: M62.82 Rhabdomyolysis (principal); R79.89 Other specified abnormal findings of blood chemistry; F25.0 Schizoaffective disorder, bipolar type; K52.9 Noninfective gastroenteritis and colitis, unspecified; E03.9 Hypothyroidism, unspecified; F17.210 Nicotine dependence, cigarettes, uncomplicated
CPT/HCPCS: 36415; 76705; 80053; 80159; 80178; 80307; 81003; 81015; 82550; 83605; 83690; 83735; 83874; 84100; 84443; 84484; 85025; 85610; 85652; 86140; 86618; 86666; 86753; 87086; 93005; 96365; 96366; 96375; 99284; A9270-GY; G0378

== ENCOUNTER 2019-10-08 14:17 | Emergency (ER) | payer MEDICARE, MEDICAID ==
--- OUTSIDE RECORDS SUMMARY | 2019-10-08 15:46 | XMS REPORT ---
:1990 Author Organization [facility] Care Team Providers Name Role Phone OSMIN STEWARD Primary Care Physician Unavailable Allergies, Adverse Reactions, Alerts Allergy Code CodeSystem Reaction Severity Criticality Status Start Substance Date Moderate Medications Medication Medication Medication Start Stop Route Dose Status Fill Code CodeSystem Date Date Instructions haloperidol 872103 RxNorm oral 10 mg active for 30 5-29 tablet day(s) olanzapine 480617 RxNorm 2017-11- oral 10 mg completed for 30 2-04 04-03 tablet day(s) haloperidol 229534 RxNorm 2017-11- oral 10 mg completed for 30 2-20 05-29 tablet day(s) lithium 19780704 RxNorm 2018- oral 300 mg 4 active Take 4 tablet carbonate 6-10 09-08 tablet at bedtime extended for 30 day(s) release at bedtime hydroxyzine 322098 RxNorm oral 25 mg active for 30 HCl 2-27 tablet day(s) lithium 19780704 RxNorm 2019- oral 300 mg completed for 30 carbonate 1-04 06-10 tablet day(s) extended release olanzapine 481567 RxNorm 2019- oral 10 mg 1 completed Take 1 tablet 4-03 07-02 tablet at at bedtime bedtime for 30 day(s) Problems Problem Name Code CodeSystem Alternate Alternate Start End Status Narrative Code CodeSystem Date Date Schizoaffective 83299796 SNOMED-CT 2019-0 Active disorder, manic 3-22 type Schizoaffective 77776956 SNOMED-CT 2019-0 Active disorder, manic 3-22 type Schizoaffective 19753957 SNOMED-CT 2019-0 Active disorder, manic 3-22 type Schizoaffective 76584950 SNOMED-CT 2019-0 Active disorder, manic 3-22 type Schizoaffective 65717083 SNOMED-CT 2019-0 Active disorder, manic 3-22 type Relevant diagnostic tests/laboratory data Narrative No Information Procedures Procedure Code CodeSystem Target Date of Status Service Device Device Device Name Site Procedure Delivery Code Name UID Location Psychotherap 308389 SNOMED-CT () 2019-06-24 complete Mental y, 45 04 d Health- minutes with [place] patient [address], [id number] [id number] Office [place] 167768 SNOMED-CT () 2019-09-16 complete Mental other 7 d Health- outpatient [place] visit for [address], established [id number] patient, [id number] which requires at least 2 of these 3 wen components: An expanded problem focused history; An expanded problem focused examination; Medical decision making of low Office or 454952 SNOMED-CT () 2019-08-04 complete Mental other 7 d Health- outpatient [place] visit for [address], established [id number] patient, [id number] which requires at least 2 of these 3 wen components: An expanded problem focused history; An expanded problem focused examination; Medical decision making of low Office or 823472 SNOMED-CT () 2019-04-12 complete Mental other 7 d Health- outpatient [place] visit for [address], established [id number] patient, [id number] which requires at least 2 of these 3 wen components: An expanded problem focused history; An expanded problem focused examination; Medical decision making of low Office or 259360 SNOMED-CT () 2019-06-08 complete Mental other 6 d Health- outpatient [place] visit for [address], established [id number] patient, [id number] which requires at least 2 of these 3 wen components: A problem focused history; A problem focused examination; Straightforw howie medical decision making. Counselin SNOMED-CT () 2019-02-03 complete Mental d Health- [facility], [id number] [phone] SNOMED-CT () 2019-03-19 complete Mental d Health- [place] [address], [id number] [id number] SNOMED-CT () 2019-03-[facility] [address], [id number] SNOMED-CT () 2019-07-01 [facility] [address], [id number] [id number] SNOMED-CT () 2019-07-12 [facility] d [address], [id number] [phone] SNOMED-CT () 2019-05-14 [facility] d [address], [id number] [id number] SNOMED-CT () 2019-05-21 [facility] Mental d [address], [id number] [id number] SNOMED-CT () 2019-09-09 [facility] Mental d [address], [id number] SNOMED-CT () 2019-09-14 [facility] Mental d [address], [id number] [id number] SNOMED-CT () 2019-09-21 [facility] Mental d [address], [id number] [id number] SNOMED-CT () 2019-08-26 [facility] d [address], [id number] [phone] Encounters/Encounter Diagnoses Encounter Encounter Diagnosis Diagnosis Name Diagnosis Date of Service Name Code Code CodeSystem Diagnosis Delivery Location [id number] Schizoaffective SNOMED-CT Behavioral disorder, manic Health type Clinic , , , Vital Signs No Information Social History Element Description Description Start End Code CodeSystem AdditionalInfo Date Date SexAssignedAtBirth Male 1989-0 M AdministrativeGender 06-05 Hospital Discharge Instructions Reason For Referral Medical Equipment FDA Assessments
--- OUTSIDE RECORDS SUMMARY | 2019-10-08 15:46 | XMS REPORT | Clinical Summary ---
:1990 Author Organization [facility] Address [address] [facility] [place] [address] Care Team Providers Name Role Phone Mcwilliams Moustapha Valdovinos Primary Care Provider Karlos Jose MD Unavailable Allergies No Known Allergies Medications Medication Sig Dispensed Refills Start Date End Date Status Omeprazole 40 MG Oral Take 1 Cap by 60 Cap 0 08/13/2018 Active CAPSULE DELAYED mouth BEFORE RELEASEIndications: BREAKFAST. Gastroesophageal reflux disease without esophagitis lithium 600 MG Oral Cap Take 2 Caps by 90 Cap 0 10/20/2018 Active mouth EVERY BEDTIME. haloperidol (HALDOL) 10 Take 10 mg by 0 Active MG Oral Tab mouth THREE TIMES DAILY. olanzapine 20 MG Oral Tab Take 1 Tab by 30 Tab 0 09/08/2019 Active mouth EVERY BEDTIME. 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 did IV too. now doing NA. in remission for 9 months History of alcohol abuse Overview: sober for 9 months. doing AA [place] induced hypothyroidism GERD (gastroesophageal reflux disease) Migraine without status migrainosus, not intractable Family History Medical History Relation Name Comments Bipolar Disorder Father Schizophrenia Mother Bipolar Disorder Sister Bipolar Disorder Sister Relation Name Status Comments Father Alive Mother Alive Sister Alive Sister Alive Social History Tobacco Use Types Packs/Day Years Used Date Current Every Day Smoker 2 5 Smokeless Tobacco: Former User Tobacco Cessation: Ready to Quit: No; Counseling Given: No Alcohol Use Drinks/Week oz/Week Comments No stopped 2.5 yrs Sex Assigned at Date Recorded Not on file Job Start Date Occupation Industry Not on file Not on file Not on file Travel History Travel Start Travel End No recent travel history available. Last Filed Vital Signs Vital Sign Reading Time Taken Comments Blood Pressure 125/73 09/08/2019 6:21 AM EST Pulse 72 09/08/2019 6:20 AM EST Temperature 35.8 09/08/2019 6:20 AM EST C (96.4 F) Respiratory Rate 18 09/08/2019 6:20 AM EST Oxygen Saturation 95% 09/04/2019 6:52 PM EDT Inhaled Oxygen Concentration - - Weight 106.6 kg (235 lb) 09/06/2019 6:00 AM EST Height 172.7 cm (5' 8") 09/04/2019 8:45 PM EDT Body Mass Index 35.73 09/04/2019 8:45 PM EDT Plan of Treatment Health Maintenance Due Date Last Done Comments MEDICARE ANNUAL WELLNESS VISIT 1990 PNEUMOCOCCAL 0-64 YRS (1 of 1 1997 - PPSV23) DEPRESSION SCREENING 01/06/2019 01/06/2018, 01/06/2018 INFLUENZA VACCINE (#1) 2019 HIV SCREENING Completed 09/02/2018 HPV IMMUNIZATION SERIES Aged Out No longer eligible based on patient's age to complete this topic MENINGOCOCCAL VACCINE IMM Aged Out No longer eligible based on patient's age to complete this topic Procedures Procedure Name Priority Date/Time Associated Comments Diagnosis LITHIUM LEVEL STAT 09/04/2019 3:08 Results for this PM EDT procedure are in the results section. CBC WITH DIFFERENTIAL STAT 09/04/2019 3:08 Results for this PM EDT procedure are in the results section. THYROID STIMULATING STAT 09/04/2019 3:08 Results for this HORMONE PM EDT procedure are in the results section. SALICYLATE LEVEL STAT 09/04/2019 3:08 Results for this PM EDT procedure are in the results section. URINE DRUG SCREEN STAT 09/04/2019 3:08 Results for this PM EDT procedure are in the results section. ALCOHOL LEVEL, MEDICAL STAT 09/04/2019 3:08 Results for this PM EDT procedure are in the results section. COMPREHENSIVE STAT 09/04/2019 3:08 Results for this METABOLIC PANEL PM EDT procedure are in the results section. ACETAMINOPHEN LEVEL STAT 09/04/2019 3:08 Results for this PM EDT procedure are in the results section. from Last 3 Months Results CBC WITH DIFFERENTIAL (09/04/2019 3:08 PM EDT) WBC Count 11.11 (H) 4.23 - 9.07 K/uL [facility] RBC Count 4.94 4.30 - 5.89 M/UL [facility] Hemoglobin 14.3 13.7 - 17.5 g/dL [facility] Hematocrit 42.2 40.1 - 51.0 % [facility] MCV 85.4 79.0 - 92.2 FL [facility] MCH 28.9 25.7 - 32.2 PG [facility] MCHC 33.9 32.3 - 36.5 g/dL [facility] Platelet Count 250 163 - 337 K/uL [facility] MPV 10.0 9.4 - 12.4 FL [facility] RDW 13.7 11.6 - 14.4 % [facility] Neutrophil % 68.9 (H) 34.0 - 67.9 % [facility] Lymphocyte % 21.2 (L) 21.8 - 53.1 % [facility] Monocyte % 5.8 5.3 - 12.2 % [facility] Eosinophil % 3.2 0.8 - 7.0 % [facility] Basophil % 0.4 0.2 - 1.2 % [facility] nRBC % 0.0 0.0 - 0.2 % [facility] Neutrophil # 7.66 (H) 1.78 - 5.38 K/UL [facility] Lymphocyte # 2.35 1.32 - 3.57 K/UL [facility] Monocyte # 0.64 0.30 - 0.82 K/UL [facility] Eosinophil # 0.36 0.04 - 0.54 K/UL [facility] Basophil # 0.04 0.01 - 0.08 K/UL [facility] Immature Gran % 0.5 (H) 0.0 - 0.4 % [facility] Immature Gran # 0.06 (H) 0.00 - 0.03 K/uL [facility] NRBC # 0.00 0.00 - 0.12 K/uL [facility] Specimen Blood - Blood specimen (specimen) Performing Organization Address [facility] Phone [facility] [address] [place] [address] URINE DRUG SCREEN (09/04/2019 3:08 PM EDT) Amphetamines Negative Negative [facility] Barbiturates Negative Negative [facility] Benzodiazepine Negative Negative [facility] Cannabinoids Negative Negative [facility] Cocaine Negative Negative [facility] Methadone Negative Negative [facility] Opiates Negative Negative [facility]xycodone Negative Negative [facility] Phencyclidine Negative Negative [facility] Propoxyphene Negative Negative [facility] Specimen Urine - Urine specimen obtained by clean catch procedure (specimen) Narrative Performed At Drug Name [facility] Cut-off Level Amphetamine (AMP/METH) 1000 ng/ml Barbiturates (DENNIS) 200 ng/ml Benzodiazepines (BEN) 200 ng/ml Cannabinoids (THC) 50 ng/ml Cocaine (ITZ) 300 ng/ml Methadone (MTD) 300 ng/ml Opiates (OPI) 300 ng/ml Oxycodone (OXY) 100 ng/ml Phencyclidine (PCP) 25 ng/ml Propoxyphene (PPX) 300 ng/ml Test results from this drug screen are to be used for medical purposes only. If positive, the sample is presumed to contain detectable drug concentrations equal to or greater than the cut-off concentrations listed above. A positive result indicates the presence of the drug or drug metabolite and does not indicate the level of intoxication or urinary concentration. Confirmation is available upon request to [facility]. Request for confirmation must be made within 5 days of the drug screen result. Performing Organization Address [facility] Phone Number [facility] [address] [place] [address] [phone] THYROID STIMULATING HORMONE (09/04/2019 3:08 PM EDT) TSH 4.21 0.47 - 4.68 uIu/ml [facility] Specimen Blood - Blood specimen (specimen) Performing Organization Address [facility] Phone Number [facility] [address] [place] [address] SALICYLATE LEVEL (09/04/2019 3:08 PM EDT) Salicylate <1 (L) 2 - 20 mg/dl [facility] Specimen Blood - Blood specimen (specimen) Performing Organization Address [facility] Phone Number [facility] [address] [place] [address] LITHIUM LEVEL (09/04/2019 3:08 PM EDT) [place] Level 0.70 0.60 - 1.20 MMOL/L [facility] Specimen Blood - Blood specimen (specimen) Performing Organization Address [facility]ode Phone Number [facility] [address] [place] [address] [phone] COMPREHENSIVE METABOLIC PANEL (09/04/2019 3:08 PM EDT) Sodium 141 134 - 145 mmol/L [facility] Potassium 4.5 3.5 - 5.1 mmol/L [facility] Chloride 108 (H) 98 - 107 mmol/L [facility] CO2 22 22 - 30 mmol/L [facility] Calcium 9.7 8.3 - 10.1 mg/dl [facility] Albumin 4.7 3.5 - 5.0 g/dl [facility] BUN 12 9 - 20 mg/dl [facility] Creatinine 0.9 0.8 - 1.5 mg/dl [facility] Glucose 102 (H) 70 - 99 mg/dl [facility] Total Protein 8.1 6.3 - 8.2 g/dl [facility] Total Bilirubin 0.3 0.0 - 1.1 MG/DL [facility] AST 33 17 - 59 U/L [facility] ALT 55 21 - 72 U/L [facility] Alkaline 71 40 - 150 U/L [facility] Phosphatase [facility] eGFR >60 See Interpretation [facility] Comment: Below ml/min/1.73ml GROUP Estimated GFR Interpretation: Sq LABORATORY Above 60ml/min/1.73m2 = Normal Renal Function 30-59 ml/min/1.73m2 = Stage 3 Chronic Kidney Disease 15-29 ml/min/1.73m2 = Stage 4 Chronic Kidney Disease Less than 15 ml/min/1.73m2 = Stage 5 Chronic Kidney Disease The GFR value is calculated using the Modification of Diet in Renal Disease ( MDRD) Study Equation which can be found at: https://www.kidney.org/content/luxq-sozlj-mdcefywv BUN/Creatinine 13 6 - 22 [place]IO [place] [employer] [facility] GROUP LABORATORY Anion Gap 11 3 - 11 mmol/L [facility] A/G Ratio 1.4 0.8 - 2.0 ratio [facility] Specimen Blood - Blood specimen (specimen) Performing Organization Address City/[facility] Phone Number [place] [employer] [facility] [address] [place] [address] ALCOHOL LEVEL, MEDICAL (09/04/2019 3:08 PM EDT) Blood Alcohol <10.00 0.00 - 10.00 [facility] MG/DL [facility] Alcohol % Comment: None [place] [employer] [facility] Specimen Blood - Blood specimen (specimen) Performing Organization Address [facility] Cent[facility]ode Phone Number [employer] [facility] [address] [place] [address] ACETAMINOPHEN LEVEL (09/04/2019 3:08 PM EDT) Acetaminophen <10.0 10 .0 - 30.0 ug/mL [place] [employer] [facility] Specimen Blood - Blood specimen (specimen) Performing Organization Address [facility] Cent[facility]ode Phone Number [facility] [address] [place] [address] from Last 3 Months Insurance Payer Benefit Plan / Subscriber ID Effective Dates Phone Address Type Group MEDICARE MEDICARE PART A xxxxxxxxxxx 2018-Present Medicare & B MEDICAID [facility] xxxxxxxx 2019-Present [place]
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
[2019-10-08 18:23] LABS: ABS Eosinophils 0.4 10^3/ul (0-0.6); ABS Lymphocytes 2.3 10^3/ul (1.0-4.8); ABS Monocytes 0.6 10^3/ul (0-0.8); ABS Neutrophils 6.3 10^3/ul (1.5-7.7); Hematocrit 40 % (42-52); Hemoglobin 13.6 g/dL (14.0-18.0); Lymphocyte % 24.4 %; Mean Corpuscular HGB Conc 34 g/dL (31-36); Mean Corpuscular Hemoglobin 30 pg (27-31); Mean Corpuscular Volume 87 fL (80-94); Mean Platelet Volume 7.9 fL (7.4-10.4); Platelet Count 227 10^3/uL (150-450); Red Blood Count 4.57 10^6 /uL (4.18-5.48); Red Cell Distribution Width 14 % (10-15); White Blood Count 9.6 10^3/uL (3.5-10.8)
[2019-10-08 18:42] LABS: ALT 49 U/L (7-52); AST 28 U/L (13-39); Albumin 4.6 g/dL (3.2-5.2); Albumin/Globulin Ratio 1.6 (1-3); Alkaline Phosphatase 69 U/L (34-104); Anion Gap 4 mmol/L (2-11); BUN/Creatinine Ratio 11.9 (8-20); Blood Urea Nitrogen 13 mg/dL (6-24); CO2 Carbon Dioxide 27 mmol/L (22-32); Calcium 9.8 mg/dL (8.6-10.3); Chloride 107 mmol/L (101-111); EGFR African American 97.5 (>60); EGFR Non-African American 80.6 (>60); Globulin 2.8 g/dL (2-4); Glucose 96 mg/dL (70-100); Potassium 3.8 mmol/L (3.5-5.0); Sodium 138 mmol/L (135-145); Total Protein 7.4 g/dL (6.4-8.9)
[2019-10-08 18:54] LABS: Acetaminophen < 15 mcg/mL; Alcohol < 10 mg/dL (<10); Salicylate < 2.50 mg/dL (<30)
[2019-10-08 19:07] LABS: TSH (Thyroid Stimulating Horm) 4.43 mcIU/mL (0.34-5.60)
[2019-10-08 20:03] LABS: Urine Appearance Cloudy; Urine Bilirubin Negative (Negative); Urine Blood 2+ (Negative); Urine Color Yellow; Urine Glucose Negative (Negative); Urine Ketones Negative (Negative); Urine Nitrite Negative (Negative); Urine Protein Negative (Negative); Urine Specific Gravity 1.014 (1.010-1.030); Urine Urobilinogen Negative (Negative)
[2019-10-08 20:05] LABS: Urine Bacteria Absent (Absent); Urine Red Blood Cell 3+(>10/hpf) (Absent); Urine White Blood Cell 1+(6-10/hpf) (Absent)
[2019-10-08 20:17] LABS: Urine Benzodiazepine Screen None Detected (None Detect); Urine Opiates Screen None Detected (None Detect)
[2019-10-09 03:58] VITALS: BP 148/85
== END 2019-10-09 04:00 | disposition home or self-care (01) ==
LOC: ED 14:17
DX: F19.10 Other psychoactive substance abuse, uncomplicated (principal); F25.9 Schizoaffective disorder, unspecified; F17.210 Nicotine dependence, cigarettes, uncomplicated; Z79.899 Other long term (current) drug therapy
CPT/HCPCS: 36415; 80053; 80307; 80320; 80329; 81003; 81015; 84443; 85025; 87086; 99282; G0480

== ENCOUNTER 2019-11-22 11:36 | Emergency (ER) | payer MEDICARE, OTHER ==
[2019-11-22 11:49] VITALS: BP 129/69
--- NOTE | 2019-11-22 12:01 | UC ---
FLU HPI - HPI Summary HPI Summary: 29 yo male presents with nausea. He tells me that over the last 2 months has had nausea, vomiting, dizziness, and blurry vision. He started a new medication , Invega, around that time through his psychiatrist. He believes his symptoms are related to that. He discussed this with his psychiatrist a 2 weeks ago and they changed him to the injection formula, but symptoms are continuing. He is eating and drinking, but states decreased appetite. States vomiting anywhere from 2-10 times a day. Denies head injury, fever, weakness, numbness, cold symptoms, SOB, chest pain, abdominal pain, diarrhea, back pain, dysuria. Last BM was today. He has taken OTC "antacids" as he has a history of GERD and states that these help a little. - History of Current Complaint Chief Complaint: UCGeneralIllness Stated Complaint: DIZZINESS,NAUSEA Time Seen by Provider: 11/22/19 12:01 Hx Obtained From: Patient Onset/Duration: Gradual Onset Severity Currently: Moderate Severity Initially: Moderate Pain Intensity: 5 Pain Scale Used: 0-10 Numeric - Allergy/Home Medications Allergies/Adverse Reactions: Allergies Allergy/AdvReac Type Severity Reaction Status Date / Time No Known Allergies Allergy Verified 11/22/19 11:49 Home Medications: Home Medications Paliperidone Palmitate [Invega Sustenna] 78 mg IM SEE INSTRUCTIONS 11/22/19 [ History Confirmed 11/22/19] PMH/Surg Hx/FS Hx/Imm Hx Psychological History: Bipolar Disorder, Schizophrenia - Surgical History Surgical History: None - Family History Known Family History: Positive: Other - schizophrenia - Social History Lives: With Family Alcohol Use: None Alcohol Amount: hx etoh abuse Substance Use Type: Other Substance Use Comment - Amount & Last Used: methamphetamine 3 days ago Smoking Status (MU): Heavy Every Day Tobacco Smoker Type: Cigarettes Amount Used/How Often: PPD Length of Time of Smoking/Using Tobacco: 5YRS Have You Smoked in the Last Year: Yes When Did the Patient Quit Smoking/Using Tobacco: 02/28/14 Household Exposure Type: Cigarettes - Immunization History Most Recent Influenza Vaccination: never Most Recent Tetanus Shot: within 10 years Most Recent Pneumonia Vaccination: never Review of Systems All Other Systems Reviewed And Are Negative: No Constitutional: Positive: Negative Skin: Positive: Negative Eyes: Positive: Negative ENT: Positive: Negative Respiratory: Positive: Negative Cardiovascular: Positive: Negative Gastrointestinal: Positive: Vomiting, Nausea Genitourinary: Positive: Negative Neurovascular: Positive: Negative Neurological: Positive: Negative Psychological: Positive: Negative Physical Exam - Summary Physical Exam Summary: GENERAL: NAD. WDWN. No pain distress. SKIN: No rashes, sores, ulcers, masses, lesions. HEENT: Head: AT/NC. No raccoon eyes or battles sign. Eyes: PERRLA. EOM intact. Conjunctiva clear without inflammation or discharge. Ears: Hearing grossly normal. TMs intact, no bulging, erythema, or edema. No hemotympanum Nose: Nasal mucosa pink and moist. NTTP maxillary and frontal sinus. Throat: Posterior oropharynx without exudates, erythema, or tonsillar enlargement. Uvula midline. NECK: Supple. Nontender. FROM CHEST: CTAB. No r/r/w. No accessory muscle use. Breathing comfortably and in no distress. CV: RRR. Pulses intact. Brisk cap refill. ABDOMEN: Soft. NTTP. Bowel sounds present. Negative mcfarlane sign. MSK: FROM in B/L UEs and LEs with symmetric strength. NEURO: A&Ox3. CN: II: Peripheral siddiqi intact. Vision normal. III, IV, : EOMI. No nystagmus. PERRLA. V: Sensations intact and symmetric. Opens mouth and clenches teeth. VII: No facial asymmetry. Forehead wrinkles. Grins, shuts eyes, frowns, puffs cheeks. VIII: Hearing intact to finger rub. IX, X: Swallows and coughs. Uvula midline. XI: Shrugs shoulders. Turns head against resistance. XII : No tongue deviation Ofohcy-va-thzw are intact. Gait with normal base. Romberg : maintains balance, no pronator drift. Normal speech. No facial drooping. PSYCH: Age appropriate behavior. Triage Information Reviewed: Yes Vital Signs: Initial Vital Signs Temp 97.8 F 11/22/19 11:45 Pulse 64 11/22/19 11:45 Resp 19 11/22/19 11:45 BP 129/69 11/22/19 11:45 Pulse Ox 100 11/22/19 11:45 Laboratory Tests 11/22/19 12:42 POC Urine Color Yellow POC Urine Clarity Clear POC Urine pH 6.5 POC Ur Specif [place] 1.010 POC Urine Protein Negative POC Ur Glucose (UA) Negative POC Urine Ketones Negative POC Urine Blood 1+ A POC Urine Nitrite Negative POC Urine Bilirubin Negative POC Urine Urobilinogen 0.2 POC U Leukocyte Esteras Negative Vital Signs Reviewed: Yes Flu Course/Dx - Course Course Of Treatment: UA as above. Had 2+ blood in his urine about a month ago as well without correlating symptoms. Will refer him to Urology for further evaluation of his microscopic hematuria. Regarding his ongoing nausea and vomiting - it seems to correlate with starting his new medication. Will try him with omeprazole and draw for CBC, CMP, and a lithium level today as he states this hasn't been checked in a few months. Low suspicion for lithium tox today as he is not having any sluggishness, ataxia, confusion or agitation, or tremors. He has never had elevated lithium in the past and has not had a recent change in dosing. Encouraged to f/u with psychiatrist as his symptoms seem most related to his new medication. - Differential Dx/Diagnosis Provider Diagnosis: Nausea and vomiting Discharge ED - Sign-Out/Discharge Documenting (check all that apply): Patient Departure All imaging exams completed and their final reports reviewed: No Studies - Discharge Plan Condition: Stable Disposition: HOME Prescriptions: Omeprazole 20 mg PO BID #30 tablet.dr Referrals: Dennis Hicks NP [Primary Care Provider] - Jem Isbell MD [Medical Doctor] - As Soon As Possible Additional Instructions: If you develop a fever, shortness of breath, chest pain, new or worsening symptoms - please call your PCP or go to the ED immediately. I recommend that you contact your mental health specialist to discuss your Invega as this is possibly causing your symptoms. 1) You had some microscopic blood in your urine today - it looks like you have had this in the past as well. This likely is an insignificant finding, but I recommend that you call Urology at the number below to schedule an appointment for further evaluation of this - Billing Disposition and Condition Condition: STABLE Disposition: Home - Attestation Statements Provider Attestation: I was available for consult. This patient was seen by the BILL[facility]. The patient was not presented to, seen by, or examined by me. -Jen
[2019-11-22 16:42] LABS: ABS Eosinophils 0.3 10^3/ul (0-0.6); ABS Lymphocytes 1.7 10^3/ul (1.0-4.8); ABS Monocytes 0.5 10^3/ul (0-0.8); Eosinophil % 4.1 %; Hematocrit 41 % (42-52); Hemoglobin 14.1 g/dL (14.0-18.0); Lymphocyte % 22.7 %; Mean Corpuscular HGB Conc 35 g/dL (31-36); Mean Corpuscular Hemoglobin 30 pg (27-31); Mean Corpuscular Volume 87 fL (80-94); Mean Platelet Volume 9.5 fL (7.4-10.4); Nucleated Red Blood Cells % 0.1; Platelet Count 249 10^3/uL (150-450); Red Blood Count 4.69 10^6 /uL (4.18-5.48); Red Cell Distribution Width 13 % (10-15); White Blood Count 7.6 10^3/uL (3.5-10.8)
[2019-11-22 16:53] LABS: Lithium 0.41 mmol/L (0.6-1.2)
[2019-11-22 17:05] LABS: Albumin 4.5 g/dL (3.2-5.2); Calcium 9.7 mg/dL (8.6-10.3); Potassium 4.6 mmol/L (3.5-5.0); Total Bilirubin 0.4 mg/dL (0.2-1.0)
[2019-11-22 17:11] LABS: Albumin/Globulin Ratio 1.8 (1-3); BUN/Creatinine Ratio 11.7 (8-20); EGFR African American 115.6 (>60); EGFR Non-African American 95.6 (>60); Globulin 2.5 g/dL (2-4)
--- NOTE | 2019-11-23 08:04 | UC ---
- Progress Note Progress Note: PLEASE CALL PATIENT. ADVISE THAT LITHIUM LEVEL IS SUBTHERAPEUTIC. ENCOURAGE HIM TO FOLLOW UP WITH HIS PSYCHIATRIST ADVISED DURING VISIT. Course/Dx - Diagnoses Provider Diagnoses: Nausea and vomiting Discharge ED - Sign-Out/Discharge Documenting (check all that apply): Post-Discharge Follow Up All imaging exams completed and their final reports reviewed: No Studies - Discharge Plan Condition: Stable Disposition: HOME Prescriptions: Omeprazole 20 mg PO BID #30 tablet.dr Referrals: Dennis Hicks NP [Primary Care Provider] - Jem Isbell MD [Medical Doctor] - As Soon As Possible Additional Instructions: If you develop a fever, shortness of breath, chest pain, new or worsening symptoms - please call your PCP or go to the ED immediately. I recommend that you contact your mental health specialist to discuss your Invega as this is possibly causing your symptoms. 1) You had some microscopic blood in your urine today - it looks like you have had this in the past as well. This likely is an insignificant finding, but I recommend that you call Urology at the number below to schedule an appointment for further evaluation of this - Billing Disposition and Condition Condition: STABLE Disposition: Home
== END 2019-11-22 13:05 | disposition home or self-care (01) ==
LOC: UCEAST 11:36
DX: R11.2 Nausea with vomiting, unspecified (principal); F31.9 Bipolar disorder, unspecified; F20.9 Schizophrenia, unspecified; F17.210 Nicotine dependence, cigarettes, uncomplicated
CPT/HCPCS: 36415; 80053; 80178; 81003; 85025; 99212; G0463

== ENCOUNTER 2020-01-05 08:28 | Inpatient (IN) | payer MEDICARE, MEDICAID ==
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
[2020-01-05 09:39] LABS: Urine Appearance Clear; Urine Bacteria Absent (Absent); Urine Bilirubin Negative (Negative); Urine Blood 2+ (Negative); Urine Color Yellow; Urine Glucose Negative (Negative); Urine Ketones Negative (Negative); Urine Nitrite Negative (Negative); Urine Protein Negative (Negative); Urine Red Blood Cell 3+(>10/hpf) (Absent); Urine Urobilinogen Negative (Negative); Urine White Blood Cell Trace(0-5/hpf) (Absent)
[2020-01-05 09:40] LABS: ABS Eosinophils 0.2 10^3/ul (0-0.6); ABS Lymphocytes 1.1 10^3/ul (1.0-4.8); ABS Monocytes 0.4 10^3/ul (0-0.8); ABS Neutrophils 6.1 10^3/ul (1.5-7.7); Eosinophil % 2.3 %; Hematocrit 36 % (42-52); Hemoglobin 12.3 g/dL (14.0-18.0); Lymphocyte % 13.7 %; Mean Corpuscular HGB Conc 34 g/dL (31-36); Mean Corpuscular Hemoglobin 29 pg (27-31); Mean Corpuscular Volume 87 fL (80-94); Mean Platelet Volume 9.1 fL (7.4-10.4); Platelet Count 200 10^3/uL (150-450); Red Blood Count 4.19 10^6 /uL (4.18-5.48); Red Cell Distribution Width 13 % (10-15); White Blood Count 7.7 10^3/uL (3.5-10.8)
[2020-01-05 09:52] LABS: Urine Benzodiazepine Screen None Detected (None Detect); Urine Opiates Screen None Detected (None Detect)
[2020-01-05 09:56] LABS: ALT 45 U/L (7-52); AST 46 U/L (13-39); Albumin 4.3 g/dL (3.2-5.2); Alkaline Phosphatase 47 U/L (34-104); Anion Gap 3 mmol/L (2-11); BUN/Creatinine Ratio 17.9 (8-20); Blood Urea Nitrogen 15 mg/dL (6-24); CO2 Carbon Dioxide 28 mmol/L (22-32); Calcium 9.4 mg/dL (8.6-10.3); Chloride 109 mmol/L (101-111); EGFR African American 131.7 (>60); EGFR Non-African American 108.8 (>60); Globulin 2.1 g/dL (2-4); Glucose 119 mg/dL (70-100); Potassium 4.1 mmol/L (3.5-5.0); Sodium 140 mmol/L (135-145); Total Protein 6.4 g/dL (6.4-8.9)
[2020-01-05 10:20] LABS: Acetaminophen < 15 mcg/mL; Alcohol < 10 mg/dL (<10); Salicylate < 2.50 mg/dL (<30)
[2020-01-05 10:35] LABS: TSH (Thyroid Stimulating Horm) 2.04 mcIU/mL (0.34-5.60)
[2020-01-05 11:47] LABS: HIV 4th Generation Nonreactive (Nonreactive)
[2020-01-05] MEDS ORDERED: Acetaminophen TAB* 325 MG PO PRN (20:10)
[2020-01-05] MEDS ORDERED: Al Hydrox/Mg Hydrox/Simet LIQ* 30 ML UDC PO PRN (20:10)
[2020-01-06] MEDS ORDERED: Influenza VAC *QUAD* 2019-20* 0.5 ML SYRINGE IM ONE (09:00)
[2020-01-06] MEDS: Vitamin THERAPEUTIC TAB PO SCH (11:32)
--- NOTE | 2020-01-06 11:53 | PN ---
BSU: Group Therapy Note - Service Type Service Type: [id number] Group Psychotherapy - Cognitive Behavioral Group Therapy ( CBT):Patient was attentive and participatory in CBT programming this morning, and remained in good behavioral control. Patient expressed positive insights regarding relevant treatment interventions and goals.
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
[2020-01-06] MEDS: Buprenorp/Nalox 2-0.5 MG SL TAB SL SCH ×2 (14:32→20:37)
[2020-01-06] MEDS: Lurasidone(*) 80 MG TAB PO SCH (17:25)
[2020-01-06] MEDS: Nicotine* 4MG (FRUIT FLAVOR) GUM PO PRN ×2 (18:25→20:55)
[2020-01-06] MEDS: Lithium Carbonate TAB* 300 MG PO SCH (20:37)
[2020-01-06] MEDS ORDERED: Buprenorp/Nalox 2-0.5 MG SL TAB SL SCH (21:00)
[2020-01-07] MEDS: Nicotine* 4MG (FRUIT FLAVOR) GUM PO PRN ×4 (06:45→20:07)
[2020-01-07 08:14] LABS: HDL Cholesterol 50.6 mg/dL
[2020-01-07] MEDS: Lithium Carbonate TAB* 300 MG PO SCH ×2 (09:35→20:06)
[2020-01-07] MEDS: Buprenorp/Nalox 2-0.5 MG SL TAB SL SCH ×2 (09:35→20:07)
[2020-01-07] MEDS: Pantoprazole TAB * 40 MG TAB PO SCH (09:35)
[2020-01-07] MEDS: Vitamin THERAPEUTIC TAB PO SCH (09:35)
[2020-01-07] MEDS: Lurasidone(*) 80 MG TAB PO SCH (17:39)
--- NOTE | 2020-01-07 18:25 | PN ---
Subjective - Subjective Date of Service: 01/07/20 Service Type: 28319 Hosp care 25 min moderate complexity Subjective: Jovi states he's feeling better and that the auditory hallucinations have decreased. He continues to hear whispers directed at him from others in the milieu, but he states he doesn't mind because he doesn't know these people anyway. He thinks the improvements come from three things: being in a safe place, feeling like he doesn't care what others in the vicinity think about him, and the start of Latuda. He says he is looking forward to going home, but is also relieved to be in a safe environment. Objective - General Observations Appearance: Neat, Well Groomed Appears Stated Age: Yes Stature: WNL Posture: WNL Eye Contact: Intense Behavior/Activity: Accelerated - Interaction Observations Attitude Towards Examiner: Cooperative Stated Mood: Dysphoric, Anxious Affect: Incongruent, Bright Speech Pattern/Tone: Clear, Appropriate, Normal Volume Thought Process: Coherent Perception: WNL Thought Content: Preoccupation/Ruminations, Self-Deprecatory Hallucination Type: Auditory Delusion Type: None - Cognitive Function Orientation: A&O x 4 Level of Consciousness: Awake, Alert, Appropriate Cognition: Impaired Cognition, Impaired Attention/Concentration Estimated Intelligence: Normal Insight: WNL Judgment Within Normal Limits: No Ability to Make Reasonable Decisions: Mildly Impaired - Medication Compliance Cooperative with Inpatient Medication Regimen: Yes - Group Participation Participates in Group Activities: Yes Assessment - Assessment Merits Inpatient Hospitalization: For Immediate Safety Inpatient DSM-V Dx: F25.9 Clinical Impression: Jovi is a 29-year-old man diagnosed with schizoaffective disorder who comes to the hospital with very disturbing auditory and visual hallucinations that are driving him to have sucidal thoughts. In the hospital, he is feeling safe and the severity of the hallucinations has dropped but is still bothersome and distracting. BSU: Problem List - Patient Problems (1) Schizoaffective disorder, bipolar type Current Visit: Yes Status: Acute Code(s): F25.0 - SCHIZOAFFECTIVE DISORDER, BIPOLAR TYPE SNOMED Code(s): 60151936 Plan - Plan Treatment Plan: Name: JOVI LANDA Birthdate: 1990 [id number] Start Latuda and stop Vraylar. Increase over 4-6 days the dose of Latuda to 160 mg. Plan to discharge Friday if medication changes are tolerated. Continued Medication Management: Different Medication Medications: Current Medications Acetaminophen (Tylenol Tab*) 650 mg PO Q4H PRN PRN Reason: PAIN or TEMP > 101 F Al Hydrox/Mg Hydrox/Simethicone (Maalox Plus*) 30 ml PO Q4H PRN PRN Reason: INDIGESTION Buprenorphine/Naloxone (Suboxone 2-0.5 Mg Sl Tab*) 1 each SL BID [facility] Last Admin: 01/07/20 09:35 Dose: 1 each [place] Carbonate ([place] Carbonate Tab*) 600 mg PO BID [facility] Last Admin: 01/07/20 09:35 Dose: 600 mg Lurasidone HCl (Latuda) 80 mg PO 1700 [facility] Stop: 01/08/20 16:59 Last Admin: 01/07/20 17:39 Dose: 80 mg Lurasidone HCl (Latuda) 120 mg PO 1700 [facility] Stop: 01/10/20 16:59 Lurasidone HCl (Latuda) 160 mg PO 1700 [facility] Multivitamins (Theragran Tab*) 1 tab PO DAILY [facility] Last Admin: 01/07/20 09:35 Dose: 1 tab Nicotine Polacrilex (Nicotine Gum*) 4 mg PO Q2H PRN PRN Reason: CRAVING Last Admin: 01/07/20 14:06 Dose: 4 mg Pantoprazole Sodium (Protonix Tab*) 40 mg PO DAILY [facility] Last Admin: 01/07/20 09:35 Dose: 40 mg - Discharge Plan Discharge Plan: Outpatient Follow Up Outpatient Program: [facility]
[2020-01-08] MEDS: Nicotine* 4MG (FRUIT FLAVOR) GUM PO PRN ×5 (03:51→20:52)
[2020-01-08] MEDS: Buprenorp/Nalox 2-0.5 MG SL TAB SL SCH ×2 (08:22→20:51)
[2020-01-08] MEDS: Vitamin THERAPEUTIC TAB PO SCH (08:22)
[2020-01-08] MEDS: Lithium Carbonate TAB* 300 MG PO SCH ×2 (08:23→20:51)
[2020-01-08] MEDS: Pantoprazole TAB * 40 MG TAB PO SCH (08:23)
[2020-01-08] MEDS: Lurasidone(*) 120 MG TAB PO SCH (17:33)
--- NOTE | 2020-01-08 20:28 | PN ---
Subjective - Subjective Date of Service: 01/08/20 Service Type: 10365 Hosp care 15 min low complexity Subjective: Reports sleeping good. Tolerating escalating latuda doses. Still having voices , but less intense. Denies any dangerous intent or plan. Denies any physical problems. Objective - General Observations Appearance: Neat, Well Groomed Appears Stated Age: Yes Stature: WNL Eye Contact: Average Behavior/Activity: WNL - Interaction Observations Attitude Towards Examiner: Cooperative Stated Mood: Euthymic - Fair and balanced Affect: Full Speech Pattern/Tone: Clear, Appropriate, Normal Volume Thought Process: Coherent, Goal Directed Perception: WNL Thought Content: Paranoid, Self-Deprecatory Thought Process: Lethality: Paranoid Ideation Hallucination Type: Auditory - slightly reduced, Visual - much reduced Delusion Type: None - Cognitive Function Orientation: A&O x 4 Level of Consciousness: Awake, Alert, Appropriate Cognition: WNL, Impaired Attention/Concentration - has ADHD Estimated Intelligence: Normal Insight: WNL Judgment Within Normal Limits: Yes - Medication Compliance Cooperative with Inpatient Medication Regimen: Yes - Group Participation Participates in Group Activities: Yes Assessment - Assessment Merits Inpatient Hospitalization: For Immediate Safety, For Stabilization, For Ongoing Evaluation, Consolidate Improvements, For Discharge Planning Inpatient DSM-V Dx: F25.9 Clinical Impression: Jvoi is a 29-year-old man diagnosed with schizoaffective disorder who comes to the hospital with very disturbing auditory and visual hallucinations that are driving him to have sucidal thoughts. In the hospital, he is feeling safe and the severity of the hallucinations has dropped but is still bothersome and distracting. 3.7.20 Remains pleasant and collaborative with care. Still voices, much less visions, no dangerous intent/plan. Plan - Plan Treatment Plan: Name: JOVI LANDA Birthdate: 1990 [id number] Start Latuda and stop Vraylar. Increase over 4-6 days the dose of Latuda to 160 mg. Plan to discharge Friday if medication changes are tolerated. 3.7.20 Tolerating up titration of Latuda. Some improvement in hallucinations. Still some paranoia. Continued Medication Management: Different Medication Medications: Current Medications Acetaminophen (Tylenol Tab*) 650 mg PO Q4H PRN PRN Reason: PAIN or TEMP > 101 F Al Hydrox/Mg Hydrox/Simethicone (Maalox Plus*) 30 ml PO Q4H PRN PRN Reason: INDIGESTION Buprenorphine/Naloxone (Suboxone 2-0.5 Mg Sl Tab*) 1 each SL BID [facility] Last Admin: 01/08/20 08:22 Dose: 1 each [place] Carbonate ([place] Carbonate Tab*) 600 mg PO BID [facility] Last Admin: 01/08/20 08:23 Dose: 600 mg Lurasidone HCl (Latuda) 120 mg PO 1700 [facility] Stop: 01/10/20 16:59 Last Admin: 01/08/20 17:33 Dose: 120 mg Lurasidone HCl (Latuda) 160 mg PO 1700 [facility] Multivitamins (Theragran Tab*) 1 tab PO DAILY [facility] Last Admin: 01/08/20 08:22 Dose: 1 tab Nicotine Polacrilex (Nicotine Gum*) 4 mg PO Q2H PRN PRN Reason: CRAVING Last Admin: 01/08/20 17:34 Dose: 4 mg Pantoprazole Sodium (Protonix Tab*) 40 mg PO DAILY [facility] Last Admin: 01/08/20 08:23 Dose: 40 mg - Discharge Plan Discharge Plan: Outpatient Follow Up Outpatient Program: [facility]
[2020-01-09] MEDS: Buprenorp/Nalox 2-0.5 MG SL TAB SL SCH ×2 (09:18→20:44)
[2020-01-09] MEDS: Vitamin THERAPEUTIC TAB PO SCH (09:19)
[2020-01-09] MEDS: Pantoprazole TAB * 40 MG TAB PO SCH (09:19)
[2020-01-09] MEDS: Lithium Carbonate TAB* 300 MG PO SCH ×2 (09:19→20:44)
[2020-01-09] MEDS: Nicotine* 4MG (FRUIT FLAVOR) GUM PO PRN ×2 (17:34→20:44)
[2020-01-09] MEDS: Lurasidone(*) 120 MG TAB PO SCH (17:34)
[2020-01-10] MEDS: Nicotine* 4MG (FRUIT FLAVOR) GUM PO PRN ×6 (02:26→22:03)
[2020-01-10] MEDS: Lithium Carbonate TAB* 300 MG PO SCH ×2 (08:55→22:03)
[2020-01-10] MEDS: Pantoprazole TAB * 40 MG TAB PO SCH (08:55)
[2020-01-10] MEDS: Buprenorp/Nalox 2-0.5 MG SL TAB SL SCH ×2 (08:56→22:03)
[2020-01-10] MEDS: Vitamin THERAPEUTIC TAB PO SCH (08:56)
--- NOTE | 2020-01-10 13:39 | PN ---
Subjective - Subjective Date of Service: 01/10/20 Service Type: 47359 Hosp care 15 min low complexity Subjective: Jovi is doing very well. He is not experiencing voices this afternoon, although they were present in the morning. Jovi is delighted. He says he recalls Latuda working well in the past, now that he thinks about it. He doesn' t remember why he stopped taking it. He would like to continue with the titration up to 160 mg. We discussed that he could be discharged tomorrow as long as things continued to go well or, as his symptoms had been previously so severe, could stay a bit longer. He states he is finding this stay helpful, that going to groups and engaging in treatment is giving him the best experience he's had. Objective - General Observations Appearance: Neat, Well Groomed Appears Stated Age: Yes Stature: WNL Posture: WNL Eye Contact: Intense Behavior/Activity: Accelerated - Interaction Observations Attitude Towards Examiner: Cooperative Stated Mood: Elevated Affect: Bright Speech Pattern/Tone: Clear, Normal Volume Thought Process: Coherent Perception: WNL Hallucination Type: Auditory Delusion Type: None - Cognitive Function Orientation: A&O x 4 Level of Consciousness: Awake, Alert, Appropriate Cognition: WNL Estimated Intelligence: Normal Insight: WNL Judgment Within Normal Limits: No Ability to Make Reasonable Decisions: Mildly Impaired - Medication Compliance Cooperative with Inpatient Medication Regimen: Yes - Group Participation Participates in Group Activities: Yes Assessment - Assessment Merits Inpatient Hospitalization: For Immediate Safety Inpatient DSM-V Dx: F25.9 Clinical Impression: Jovi is a 29-year-old man diagnosed with schizoaffective disorder who comes to the hospital with very disturbing auditory and visual hallucinations that are driving him to have sucidal thoughts. In the hospital, he is feeling safe and the severity of the hallucinations has dropped but is still bothersome and distracting. 01.08.20 Remains pleasant and collaborative with care. Still voices, much less visions, no dangerous intent/plan. 01/10/2020 AH diminished significantly. Mood improved. [place] latencies. BSU: Problem List - Patient Problems (1) Schizoaffective disorder, bipolar type Current Visit: Yes Status: Acute Code(s): F25.0 - SCHIZOAFFECTIVE DISORDER, BIPOLAR TYPE SNOMED Code(s): 97540044 Plan - Plan Treatment Plan: Name: JOVI LANDA Birthdate: 1990 [id number] Start Latuda and stop Vraylar. Increase over 4-6 days the dose of Latuda to 160 mg. Plan to discharge Friday if medication changes are tolerated. 01.08.20 Tolerating up titration of Latuda. Some improvement in hallucinations. Still some paranoia. 01/10/2020 Continue titrating to 160 mg. Monitor auditory and visual hallucinations. Continued Medication Management: Different Medication Medications: Current Medications Acetaminophen (Tylenol Tab*) 650 mg PO Q4H PRN PRN Reason: PAIN or TEMP > 101 F Al Hydrox/Mg Hydrox/Simethicone (Maalox Plus*) 30 ml PO Q4H PRN PRN Reason: INDIGESTION Buprenorphine/Naloxone (Suboxone 2-0.5 Mg Sl Tab*) 1 each SL BID [facility] Last Admin: 01/10/20 08:56 Dose: 1 each [place] Carbonate ([place] Carbonate Tab*) 600 mg PO BID [facility] Last Admin: 01/10/20 08:55 Dose: 600 mg Lurasidone HCl (Latuda) 120 mg PO 1700 [facility] Stop: 01/10/20 16:59 Last Admin: 01/09/20 17:34 Dose: 120 mg Lurasidone HCl (Latuda) 160 mg PO 1700 [facility] Multivitamins (Theragran Tab*) 1 tab PO DAILY [facility] Last Admin: 01/10/20 08:56 Dose: 1 tab Nicotine Polacrilex (Nicotine Gum*) 4 mg PO Q2H PRN PRN Reason: CRAVING Last Admin: 01/10/20 12:28 Dose: 4 mg Pantoprazole Sodium (Protonix Tab*) 40 mg PO DAILY [facility] Last Admin: 01/10/20 08:55 Dose: 40 mg - Discharge Plan Discharge Plan: Outpatient Follow Up Outpatient Program: [facility]
[2020-01-10] MEDS ORDERED: Lurasidone(*) 80 MG TAB PO SCH (17:00)
[2020-01-11] MEDS: Pantoprazole TAB * 40 MG TAB PO SCH (08:39)
[2020-01-11] MEDS: Vitamin THERAPEUTIC TAB PO SCH (08:39)
[2020-01-11] MEDS: Lithium Carbonate TAB* 300 MG PO SCH (08:39)
[2020-01-11] MEDS: Buprenorp/Nalox 2-0.5 MG SL TAB SL SCH (08:40)
[2020-01-11 08:52] VITALS: BP 150/62
[2020-01-11] MEDS: Nicotine* 4MG (FRUIT FLAVOR) GUM PO PRN (09:07)
--- NOTE | 2020-01-13 00:46 | DS ---
DISCHARGE SUMMARY: DATE OF ADMISSION: 01/05/20 DATE OF DISCHARGE: 01/11/20 PROVIDER: Altagracia Garza NP, Psychiatry. SUPERVISING PHYSICIAN: Dr. Anthony Mckeon.* (DICTATED BY ALTAGRACIA GARZA NP) DIAGNOSIS: Schizoaffective disorder. CONDITION AT THE TIME OF DISCHARGE: Improved, psychiatrically cleared, stable. Jovi participated in groups and was social with peers. He is agreeable to discharge. He has done well here psychiatrically. He tolerated the addition of Latuda and the discontinuation of Vraylar well. He will attend [facility]. MENTAL STATUS EXAM: At the time of discharge, Jovi is calm, cooperative, and makes good eye contact. He is alert and oriented x4. His grooming is excellent. His speech pace is normal. His thought processes are logical. He is not psychotic or delusional. He denies AH, VH, SI, and HI. Insight and judgment are good. He is willing to follow up and he is urged to see a therapist. DISCHARGE INSTRUCTIONS TO THE PATIENT: A. Medications: 1. Suboxone 8/2 film, 0.5 in the p.m. and 1 film in the morning. 2. Hydroxyzine 25 mg p.o. t.i.d. p.r.n. anxiety. 3. [place] carbonate ER 600 mg b.i.d. 4. Lurasidone 40 mg at 5 o'clock, lurasidone 120 mg at 5 o'clock for a total of 160 mg. 5. Nicotine gum 4 mg p.o. q.2 hours p.r.n. craving. 6. Omeprazole 20 mg p.o. daily. B. Diet is regular. C. Activities are as tolerated. He is a smoker and has agreed to tobacco cessation, for which he can call the [place] [facility] at [phone] - [phone]. There are no studies pending at the time of discharge. D. He has appointments at [facility] with Dr. Jose on , 01/14/20 at 2:30 p.m. and an appointment with Deidre Rasmussen LCSW on 01/21/20 at 3:15. He is also scheduled to be referred to the [facility] for individual and group counseling. He has an appointment with Violette Adkins on 01/18/20 at 11 a.m. He is also referred to Dennis Hicks, his primary care provider, to be seen as needed. E. Disposition: Jovi is returning to his home. F. Substance abuse followup: He has been referred to the [facility] and has been discharged with Suboxone. HOSPITAL COURSE: Part A: Chief Complaint: "I'm in sheer terror all day long and no one knows." The patient is a 29-year-old partnered white male with a history of schizoaffective disorder, bipolar type and anxiety disorder, who is here on a voluntary status after determining that his antipsychotic Vraylar has not been working for the last 4 days. Jovi has been experiencing symptoms of psychosis for the last 6 years. He states the last 3 years have been hell. Things go well for 1 to 2 months, then he has 6 to 8 months of misery. He hears voices saying, "I hate you, I'm going to kill you" as well as voices that are less intense. He also experiences visual hallucinations. He states he was high on drugs for the first 3 years and that the intensity of symptoms has increased over the last years. Because the intensity of the voices as well as feeling paranoid has increased, he is considering suicide. He says he has multiple plans, but he keeps changing his mind. He states that part of him is happy and part of him is not. He has been working hard at [facility] to feel better, but he has not found a sustainable solution to the problem. Stressors include his own illness and his belief that he is not worthy of good things. His sleep is okay. He is not interested in much. He feels guilt and is allowing that to interfere with his relationship with his girlfriend Christy. He does not concentrate well. His appetite is okay. He is having suicidal ideation. Part B: Psychiatric treatment was rendered. Jovi was admitted to the adult behavioral unit and placed on 15-minute checks for his own safety. He did advance to 30-minute checks and staff pass. He was safe on all checks. Jovi did well on the unit and went to groups. He stated this was the first admission where he has gone to groups and participated and he found that very rewarding. He interacted with peers well. He said he derived a lot of benefit from these actions. He came in on Vraylar which is not on our formulary. The thought would have been to increase the Vraylar but as it was not available, we switched to Latuda which he said had brought him good results in the past. We pushed through doses 80, 120, up to 160 where we stopped and he was discharged. He had a bright affect and was smiling broadly. He stated he felt better than he ever had. The voices were gone to only a rare whisper and he was delighted. He also acknowledged that this was in part because he was in a safe place away from many of the stressors that are bothering him. He is on an atypical antipsychotic and therefore it is important to note that his hemoglobin A1c is 5.2%. Triglycerides are 87, cholesterol 97, LDL cholesterol 29, HDL cholesterol 50.6. Incidentally, his TSH is 2.04. There were no consults entered for Jovi. He is significantly improved. He has gone from being very depressed and anxious, hearing voices that are telling him insulting things, hearing voice of his girlfriend telling him that she will kill him, to being free of voices and ready to face the stressors that he was escaping when he came to the hospital. He is future oriented and eager to return to the environment of his home. ALTAGRACIA GARZA, LESLIE [id number]/[facility] #: [id number] [facility]
== END 2020-01-11 11:30 | disposition home or self-care (01) | DRG 885 ==
LOC: ED 08:28 → BSU 19:13
PROVIDERS: ADMIT Psychiatry & Neurology Psychiatry; ATTEND Psychiatry & Neurology Psychiatry
PROC: GZHZZZZ Group Psychotherapy (ICD-10-PCS; principal; 2020-01-06)
DX: F25.0 Schizoaffective disorder, bipolar type (principal); R45.851 Suicidal ideations; F50.2 Bulimia nervosa; J45.909 Unspecified asthma, uncomplicated; H91.92 Unspecified hearing loss, left ear; F41.9 Anxiety disorder, unspecified; F17.210 Nicotine dependence, cigarettes, uncomplicated; F43.10 Post-traumatic stress disorder, unspecified; Z68.29 Body mass index [BMI] 29.0-29.9, adult; Z88.8 Allergy status to other drugs, medicaments and biological substances; Z79.899 Other long term (current) drug therapy; Z23 Encounter for immunization
CPT/HCPCS: 36415; 80053; 80061; 80178; 80307; 80320; 80329; 81003; 81015; 83036; 84443; 85025; 87086; 87389; 90853; 99222; 99231; 99232; 99238; 99283; A9270-GY; G0480

== ENCOUNTER 2020-03-13 09:53 | Inpatient (IN) ==
[2020-03-13 11:04] LABS: ABS Eosinophils 0.1 10^3/ul (0-0.6); ABS Lymphocytes 1.2 10^3/ul (1.0-4.8); ABS Monocytes 0.3 10^3/ul (0-0.8); Eosinophil % 1.1 %; Hematocrit 40 % (42-52); Hemoglobin 13.7 g/dL (14.0-18.0); Lymphocyte % 18.2 %; Mean Corpuscular HGB Conc 35 g/dL (31-36); Mean Corpuscular Hemoglobin 29 pg (27-31); Mean Corpuscular Volume 84 fL (80-94); Mean Platelet Volume 8.9 fL (7.4-10.4); Platelet Count 226 10^3/uL (150-450); Red Blood Count 4.73 10^6 /uL (4.18-5.48); Red Cell Distribution Width 14 % (10-15); White Blood Count 6.7 10^3/uL (3.5-10.8)
[2020-03-13 11:15] LABS: ALT 26 U/L (7-52); AST 23 U/L (13-39); Albumin 4.7 g/dL (3.2-5.2); Albumin/Globulin Ratio 1.7 (1-3); Alkaline Phosphatase 57 U/L (34-104); Anion Gap 3 mmol/L (2-11); BUN/Creatinine Ratio 19.2 (8-20); Blood Urea Nitrogen 19 mg/dL (6-24); CO2 Carbon Dioxide 27 mmol/L (22-32); Calcium 9.9 mg/dL (8.6-10.3); Chloride 106 mmol/L (101-111); EGFR African American 108.9 (>60); Globulin 2.7 g/dL (2-4); Glucose 104 mg/dL (70-100); Potassium 4.6 mmol/L (3.5-5.0); Sodium 136 mmol/L (135-145); Total Protein 7.4 g/dL (6.4-8.9)
[2020-03-13 11:34] LABS: Acetaminophen < 15 mcg/mL; Alcohol, S < 10 mg/dL (<10); Lithium 0.65 mmol/L (0.6-1.2); Salicylate < 2.50 mg/dL (<30)
[2020-03-13] MEDS ORDERED: Al Hydrox/Mg Hydrox/Simet LIQ 30 ML UDC PO PRN (15:49)
[2020-03-13 21:41] LABS: Urine Appearance Clear; Urine Bilirubin Negative (Negative); Urine Blood 1+ (Negative); Urine Color Yellow; Urine Glucose Negative (Negative); Urine Ketones Negative (Negative); Urine Nitrite Negative (Negative); Urine Protein Negative (Negative); Urine Specific Gravity 1.017 (1.010-1.030); Urine Urobilinogen Negative (Negative)
[2020-03-13 21:43] LABS: Urine Bacteria Absent (Absent); Urine Red Blood Cell 1+(3-5/hpf) (Absent); Urine Squamous Epithelial Cell Present (Absent); Urine White Blood Cell Absent (Absent)
[2020-03-13 21:56] LABS: Urine Benzodiazepine Screen None Detected (None Detect); Urine Opiates Screen None Detected (None Detect)
[2020-03-14] MEDS: Lithium Carb ER 300 mg TAB(NF) PO SCH ×3 (02:17→20:18)
[2020-03-14 08:31] LABS: HDL Cholesterol 57.1 mg/dL
[2020-03-15] MEDS: Lithium Carb ER 300 mg TAB(NF) PO SCH ×2 (09:39→21:55)
[2020-03-15] MEDS: Ondansetron ODT 4 mg TAB 4 MG TAB SL PRN (13:43)
[2020-03-16] MEDS: Lithium Carb ER 300 mg TAB(NF) PO SCH ×2 (08:44→22:27)
[2020-03-16] MEDS: Buprenorphine 2 mg SL TAB SL SCH (08:45)
[2020-03-16] MEDS: Ondansetron ODT 4 mg TAB 4 MG TAB SL PRN (08:45)
[2020-03-17 08:34] VITALS: BP 156/75
[2020-03-17] MEDS: Lithium Carb ER 300 mg TAB(NF) PO SCH (09:11)
[2020-03-17] MEDS: Buprenorphine 2 mg SL TAB SL SCH (09:11)
[2020-03-17] MEDS: Ondansetron ODT 4 mg TAB 4 MG TAB SL PRN (09:13)
== END 2020-03-17 12:33 | disposition home or self-care (01) | DRG 885 ==
LOC: ED 09:53 → BSU 22:00
PROVIDERS: ADMIT Psychiatry & Neurology Psychiatry; ATTEND Psychiatry & Neurology Psychiatry

== ENCOUNTER 2020-04-13 19:10 | Inpatient (IN) ==
[2020-04-13 20:28] LABS: Urine Appearance Clear; Urine Bilirubin Negative (Negative); Urine Blood 2+ (Negative); Urine Color Yellow; Urine Glucose Negative (Negative); Urine Ketones Negative (Negative); Urine Nitrite Negative (Negative); Urine Protein Negative (Negative); Urine Specific Gravity 1.009 (1.010-1.030); Urine Urobilinogen Negative (Negative)
[2020-04-13 20:44] LABS: Urine Benzodiazepine Screen None Detected (None Detect); Urine Opiates Screen None Detected (None Detect)
[2020-04-13 20:48] LABS: ABS Eosinophils 0.4 10^3/ul (0-0.6); ABS Lymphocytes 2.1 10^3/ul (1.0-4.8); ABS Monocytes 0.6 10^3/ul (0-0.8); Hematocrit 38 % (42-52); Lymphocyte % 21.8 %; Mean Corpuscular HGB Conc 34 g/dL (31-36); Mean Corpuscular Hemoglobin 29 pg (27-31); Mean Corpuscular Volume 85 fL (80-94); Nucleated Red Blood Cells % 0.1; Platelet Count 196 10^3/uL (150-450); Red Blood Count 4.48 10^6 /uL (4.18-5.48); Red Cell Distribution Width 14 % (10-15); White Blood Count 9.5 10^3/uL (3.5-10.8)
[2020-04-13 20:59] LABS: Urine Bacteria Absent (Absent); Urine Red Blood Cell 2+(6-10/hpf) (Absent); Urine Squamous Epithelial Cell Present (Absent); Urine White Blood Cell Trace(0-5/hpf) (Absent)
[2020-04-13 21:04] LABS: ALT 18 U/L (7-52); AST 24 U/L (13-39); Albumin 4.2 g/dL (3.2-5.2); Albumin/Globulin Ratio 1.8 (1-3); Alkaline Phosphatase 58 U/L (34-104); Anion Gap 4 mmol/L (2-11); Blood Urea Nitrogen 11 mg/dL (6-24); CO2 Carbon Dioxide 29 mmol/L (22-32); Calcium 9.6 mg/dL (8.6-10.3); Chloride 105 mmol/L (101-111); EGFR African American 107.7 (>60); Globulin 2.4 g/dL (2-4); Glucose 110 mg/dL (70-100); Potassium 3.8 mmol/L (3.5-5.0); Sodium 138 mmol/L (135-145); Total Protein 6.6 g/dL (6.4-8.9)
[2020-04-13 21:34] LABS: Acetaminophen < 15 mcg/mL; Alcohol, S < 10 mg/dL (<10); Salicylate < 2.50 mg/dL (<30)
[2020-04-13 21:38] LABS: TSH (Thyroid Stimulating Horm) 7.43 mcIU/mL (0.34-5.60)
[2020-04-13 22:20] LABS: T4, Total 5.26 mcg/dL (6.09-12.23)
[2020-04-14] MEDS ORDERED: Al Hydrox/Mg Hydrox/Simet LIQ 30 ML UDC PO PRN (01:55)
[2020-04-14 08:19] LABS: HDL Cholesterol 50.9 mg/dL
[2020-04-14] MEDS: Vitamin THERAPEUTIC TAB PO SCH (09:00)
[2020-04-14] MEDS: Divalproex DR 500 mg TAB(*) PO SCH ×3 (09:15→22:49)
[2020-04-14 12:30] LABS: Lithium 0.81 mmol/L (0.6-1.2)
[2020-04-14] MEDS: BUPRENORPHINE NALOXONE SL SCH ×2 (16:48→16:54)
[2020-04-14] MEDS: Buprenorp/Nalox 2-0.5 mg SL TB SL SCH (16:51)
[2020-04-14] MEDS: LURASIDONE 40 MG PO SCH (18:44)
[2020-04-14] MEDS: Lurasidone 120 mg TAB (*) PO SCH (18:44)
[2020-04-15] MEDS: Vitamin THERAPEUTIC TAB PO SCH (08:41)
[2020-04-15] MEDS: Divalproex DR 500 mg TAB(*) PO SCH ×3 (08:41→20:53)
[2020-04-15] MEDS: Buprenorp/Nalox 2-0.5 mg SL TB SL SCH (08:42)
[2020-04-15] MEDS: LURASIDONE 40 MG PO SCH (20:54)
[2020-04-15] MEDS: Lurasidone 120 mg TAB (*) PO SCH (20:54)
[2020-04-16] MEDS: Divalproex DR 500 mg TAB(*) PO SCH ×3 (08:30→22:09)
[2020-04-16] MEDS: Buprenorp/Nalox 2-0.5 mg SL TB SL SCH (08:31)
[2020-04-16] MEDS: Vitamin THERAPEUTIC TAB PO SCH (08:31)
[2020-04-16] MEDS: Lurasidone 120 mg TAB (*) PO SCH (17:00)
[2020-04-16] MEDS: LURASIDONE 40 MG PO SCH (17:00)
[2020-04-17] MEDS: Divalproex DR 500 mg TAB(*) PO SCH ×3 (08:52→20:52)
[2020-04-17] MEDS: Vitamin THERAPEUTIC TAB PO SCH (08:52)
[2020-04-17] MEDS: Buprenorp/Nalox 2-0.5 mg SL TB SL SCH (08:53)
[2020-04-17] MEDS: Lurasidone 120 mg TAB (*) PO SCH (17:59)
[2020-04-17] MEDS: LURASIDONE 40 MG PO SCH (17:59)
[2020-04-18] MEDS: Buprenorp/Nalox 2-0.5 mg SL TB SL SCH (09:23)
[2020-04-18] MEDS: Vitamin THERAPEUTIC TAB PO SCH (09:23)
[2020-04-18] MEDS: Divalproex DR 500 mg TAB(*) PO SCH ×2 (09:23→21:07)
[2020-04-18] MEDS: LURASIDONE 40 MG PO SCH (17:13)
[2020-04-18] MEDS: Lurasidone 120 mg TAB (*) PO SCH (17:13)
[2020-04-19] MEDS: Divalproex DR 500 mg TAB(*) PO SCH ×2 (09:59→21:21)
[2020-04-19] MEDS: Vitamin THERAPEUTIC TAB PO SCH (10:00)
[2020-04-19] MEDS: Buprenorp/Nalox 2-0.5 mg SL TB SL SCH (10:01)
[2020-04-19] MEDS: Lurasidone 120 mg TAB (*) PO SCH (17:05)
[2020-04-19] MEDS: LURASIDONE 40 MG PO SCH (17:05)
[2020-04-20] MEDS: Divalproex DR 500 mg TAB(*) PO SCH ×2 (08:30→21:09)
[2020-04-20] MEDS: Vitamin THERAPEUTIC TAB PO SCH (08:30)
[2020-04-20] MEDS: Buprenorp/Nalox 2-0.5 mg SL TB SL SCH (08:33)
[2020-04-20] MEDS: Lurasidone 120 mg TAB (*) PO SCH (17:18)
[2020-04-20] MEDS: LURASIDONE 40 MG PO SCH (17:18)
[2020-04-21] MEDS: Buprenorp/Nalox 2-0.5 mg SL TB SL SCH (08:54)
[2020-04-21] MEDS: Divalproex DR 500 mg TAB(*) PO SCH (08:54)
[2020-04-21] MEDS: Vitamin THERAPEUTIC TAB PO SCH (08:54)
[2020-04-21 08:55] VITALS: BP 138/71
== END 2020-04-21 12:55 | disposition home or self-care (01) | DRG 885 ==
LOC: ED 19:10 → BSU 23:27
PROVIDERS: ADMIT Psychiatry & Neurology Psychiatry; ATTEND Psychiatry & Neurology Psychiatry

== ENCOUNTER 2020-05-10 20:48 | Inpatient (IN) ==
[2020-05-10 21:34] LABS: Urine Appearance Clear; Urine Bilirubin Negative (Negative); Urine Blood 1+ (Negative); Urine Color Yellow; Urine Glucose Negative (Negative); Urine Ketones Trace (Negative); Urine Nitrite Negative (Negative); Urine Protein Negative (Negative); Urine Specific Gravity 1.021 (1.010-1.030); Urine Urobilinogen Negative (Negative)
[2020-05-10 21:36] LABS: Urine Bacteria Absent (Absent); Urine Red Blood Cell 3+(>10/hpf) (Absent); Urine Squamous Epithelial Cell Present (Absent); Urine White Blood Cell Trace(0-5/hpf) (Absent)
[2020-05-10 21:56] LABS: Urine Benzodiazepine Screen None Detected (None Detect); Urine Opiates Screen None Detected (None Detect)
[2020-05-10 22:29] LABS: ABS Basophils 0.2 10^3/ul (0-0.2); ABS Eosinophils 0.2 10^3/ul (0-0.6); ABS Lymphocytes 2.5 10^3/ul (1.0-4.8); ABS Monocytes 0.6 10^3/ul (0-0.8); Eosinophil % 2.3 %; Hematocrit 37 % (42-52); Hemoglobin 12.8 g/dL (14.0-18.0); Lymphocyte % 26.6 %; Mean Corpuscular HGB Conc 34 g/dL (31-36); Mean Corpuscular Hemoglobin 29 pg (27-31); Mean Corpuscular Volume 85 fL (80-94); Mean Platelet Volume 9.3 fL (7.4-10.4); Platelet Count 197 10^3/uL (150-450); Red Blood Count 4.41 10^6 /uL (4.18-5.48); Red Cell Distribution Width 14 % (10-15); White Blood Count 9.3 10^3/uL (3.5-10.8)
[2020-05-10 22:45] LABS: Acetaminophen < 15 mcg/mL; Alcohol, S < 10 mg/dL (<10); Salicylate < 2.50 mg/dL (<30)
[2020-05-10 22:46] LABS: ALT 16 U/L (7-52); AST 22 U/L (13-39); Albumin 4.3 g/dL (3.2-5.2); Albumin/Globulin Ratio 1.7 (1-3); Alkaline Phosphatase 49 U/L (34-104); Anion Gap 6 mmol/L (2-11); BUN/Creatinine Ratio 17.8 (8-20); Blood Urea Nitrogen 16 mg/dL (6-24); CO2 Carbon Dioxide 27 mmol/L (22-32); Calcium 9.1 mg/dL (8.6-10.3); Chloride 105 mmol/L (101-111); EGFR African American 121.6 (>60); EGFR Non-African American 100.5 (>60); Globulin 2.6 g/dL (2-4); Glucose 93 mg/dL (70-100); Potassium 4.2 mmol/L (3.5-5.0); Sodium 138 mmol/L (135-145); Total Protein 6.9 g/dL (6.4-8.9)
[2020-05-10 23:01] LABS: TSH (Thyroid Stimulating Horm) 2.15 mcIU/mL (0.34-5.60)
[2020-05-11] MEDS ORDERED: Al Hydrox/Mg Hydrox/Simet LIQ 30 ML UDC PO PRN (11:34)
[2020-05-11] MEDS: Lurasidone 80 mg TAB (*) PO SCH (17:33)
[2020-05-11] MEDS: Divalproex DR 500 mg TAB(*) PO SCH (22:04)
[2020-05-12] MEDS: Vitamin THERAPEUTIC TAB PO SCH (08:16)
[2020-05-12] MEDS: Divalproex DR 500 mg TAB(*) PO SCH ×2 (08:16→22:20)
[2020-05-12] MEDS: Buprenorp/Nalox 2-0.5 mg SL TB SL SCH (11:24)
[2020-05-12] MEDS: Lurasidone 80 mg TAB (*) PO SCH (18:03)
[2020-05-13] MEDS: Divalproex DR 500 mg TAB(*) PO SCH ×2 (07:51→20:15)
[2020-05-13] MEDS: Buprenorp/Nalox 2-0.5 mg SL TB SL SCH (07:51)
[2020-05-13] MEDS: Vitamin THERAPEUTIC TAB PO SCH (07:51)
[2020-05-13] MEDS: Lurasidone 80 mg TAB (*) PO SCH (19:05)
[2020-05-14] MEDS: Divalproex DR 500 mg TAB(*) PO SCH ×2 (07:29→20:41)
[2020-05-14] MEDS: Vitamin THERAPEUTIC TAB PO SCH (07:29)
[2020-05-14] MEDS: Buprenorp/Nalox 2-0.5 mg SL TB SL SCH (07:31)
[2020-05-14] MEDS: Lurasidone 80 mg TAB (*) PO SCH (16:44)
[2020-05-15] MEDS: Vitamin THERAPEUTIC TAB PO SCH (08:37)
[2020-05-15] MEDS: Divalproex DR 500 mg TAB(*) PO SCH ×2 (08:37→21:33)
[2020-05-15] MEDS: Buprenorp/Nalox 2-0.5 mg SL TB SL SCH (08:38)
[2020-05-15] MEDS: Lurasidone 80 mg TAB (*) PO SCH (17:46)
[2020-05-16 08:16] VITALS: BP 127/60
[2020-05-16] MEDS: Vitamin THERAPEUTIC TAB PO SCH (08:16)
[2020-05-16] MEDS: Buprenorp/Nalox 2-0.5 mg SL TB SL SCH (08:16)
[2020-05-16] MEDS: Divalproex DR 500 mg TAB(*) PO SCH (08:16)
== END 2020-05-16 12:00 | disposition home or self-care (01) | DRG 885 ==
LOC: ED 20:48 → BSU 05-11 15:00
PROVIDERS: ADMIT Psychiatry & Neurology Psychiatry; ATTEND Psychiatry & Neurology Psychiatry